=== PATIENT | female | born 1995 | race Caucasian/White ===

== ENCOUNTER 2017-01-11 02:04 | Emergency (ER) | payer SELFPAY ==
[~2017-01-11] VITALS: Ht 165.1 cm; Wt 114.3 kg
[~2017-01-11 02:04] MED LIST: MACR100C2 PO
[2017-01-11 02:09] VITALS: BP 128/85; PULSE 107; RESP 16; TEMP 98.3; O2SAT 99
[2017-01-11] MEDS ORDERED: SODIUM CHLOR 0.9% 1000 ML INJ 1,000 ML IV ONE (02:25)
[2017-01-11] MEDS ORDERED: methylPREDNISolone SOD SUCC 125 MG/2 ML VIAL IV PUSH ONE (02:30)
[2017-01-11] MEDS ORDERED: PROCHLORPERAZINE INJ 10 MG/2 ML VIAL IVP ONE (02:30)
[2017-01-11] MEDS ORDERED: diphenhydrAMINE HCL 50 MG/ML VIAL IVP ONE (02:30)
[2017-01-11] MEDS ORDERED: SODIUM CHLORIDE 0.9% FLUSH 10 ML FLUSH IVF PRN (02:30)
[2017-01-11] MEDS ORDERED: HYDROmorphone HCL PF 1 MG/ML VIAL IVP ONE (02:30)
[2017-01-11] MEDS ORDERED: KETOROLAC TROMETHAMINE 30 MG/ML (IVP) VIAL IVP ONE (02:30)
--- NOTE | 2017-01-11 02:31 | PD ---
HPI Chief Complaint: Headache Time Seen by Provider: 02:15 Travel History International Travel<30 days: No Contact w/Intl Traveler<30days: No Traveled to known affect area: No History of Present Illness HPI The patient is a 21-year-old female with no known history of migraine headaches that complains of a right frontal headache for 3 days. The headache has gone into the bilateral TMJ areas and started out behind both eyes. She is nauseated but there is been no vomiting or fever. She denies any focal neurologic change. The headache was of gradual onset and gradually got worse. She denies any diarrhea. She states there is no possibility of . PFSH Past Medical History ADHD: No Depression: Yes Cancer: No Cardiovascular Problems: No Developmental Delay: No Diabetes: No Diminished Hearing: No Psychiatric: Yes (depression) Immunizations Current: Yes Migraines: No Seizures: No Thyroid Disease: No Ulcer: No Tetanus Vaccination: < 5 Years Influenza Vaccination: No ?: Not LMP: 2 WEEKS AGO : 0 Past Surgical History Other Surgery: No Social History Alcohol Use: Yes (RARELY) Tobacco Use: Yes (1/2 PPD) Substance Use: No Allergies-Medications (Allergen,Severity, Reaction): Coded Allergies: Zoloft (Verified Allergy, Severe, THROAT SWELLS, 01/11/17) Reported Meds & Prescriptions Reported Meds & Active Scripts Active No Active Prescriptions or Reported Medications Review of Systems Except as stated in HPI: all other systems reviewed are Neg Physical Exam Narrative GENERAL: The patient is alert, oriented 3 in moderate apparent distress with her headache. Her vital signs are normal. SKIN: Focused skin assessment warm/dry. HEAD: Atraumatic. Normocephalic. EYES: Pupils equal and round. No scleral icterus. No injection or drainage. ENT: No nasal bleeding or discharge. Mucous membranes pink and moist. NECK: Trachea midline. No JVD. CARDIOVASCULAR: Regular rate and rhythm. No murmur appreciated. RESPIRATORY: No accessory muscle use. Clear to auscultation. Breath sounds equal bilaterally. GASTROINTESTINAL: Abdomen soft, non-tender, nondistended. Hepatic and splenic margins not palpable. MUSCULOSKELETAL: No obvious deformities. No clubbing. No cyanosis. No edema. NEUROLOGICAL: Awake and alert. No obvious cranial nerve deficits. Motor grossly within normal limits. Normal speech. PSYCHIATRIC: Appropriate mood and affect; insight and judgment normal. Data Data Last Documented VS Vital Signs Date Time Temp Pulse Resp B/P Pulse Ox O2 Delivery O2 Flow Rate FiO2 01/11/17 02:50 85 16 100 01/11/17 02:50 135/79 Room Air 01/11/17 02:09 98.3 Orders Ecg Monitoring (01/11/17 02:25) Iv Access Insert/Monitor (01/11/17 02:25) Oximetry (01/11/17 02:25) Sodium Chloride 0.9% Flush (Ns Flush) (01/11/17 02:30) Ketorolac Inj (Toradol Inj) (01/11/17 02:30) Prochlorperazine Inj (Compazine Inj) (01/11/17 02:30) Diphenhydramine Inj (Benadryl Inj) (01/11/17 02:30) Sodium Chlor 0.9% 1000 Ml Inj (Ns 1000 M (01/11/17 02:25) Hydromorphone Pf Inj (Dilaudid Pf Inj) (01/11/17 02:30) Methylprednisolone So Succ Inj (Solumedr (01/11/17 02:30) MDM Medical Decision Making Medical Screen Exam Complete: Yes Emergency Medical Condition: Yes Medical Record Reviewed: Yes Interpretation(s) It is now 0319 and the patient's headache is completely gone. She does not want any medication for nausea. Differential Diagnosis Migraine headache, tension headache, normal pressure hydrocephalusunlikely, intracranial bleedhighly unlikely Narrative Course The patient possibly had a migraine headache because she had nausea and photophobia. Her headache is resolved at this time and she should go home and sleep. Diagnosis Primary Impression: Migraine headache Additional Instructions: When you get home go directly to bed and sleep. The best thing you can do for her headache is to sleep. Hopefully this will not become a recurrent headache. If the headache recurs, follow-up with your primary care physician. Med/Other Pt SpecificInfo: No Change to Meds Scripts No Active Prescriptions or Reported Meds Disposition: 01 DISCHARGE HOME Condition: Stable Jaden Pompa MD Jan 11, 2017 02:31
[2017-01-11 02:35] VITALS: O2SAT 99
[2017-01-11 02:50] VITALS: BP 135/79; PULSE 85; RESP 16; O2SAT 100
[2017-01-11 03:20] VITALS: BP 92/54; PULSE 73; RESP 16; O2SAT 97
[2017-01-11 03:26] VITALS: BP 96/56; PULSE 70; RESP 16; O2SAT 97
== END 2017-01-11 03:37 | disposition home or self-care (01) ==
LOC: PHED 02:04
DX: G43.909 Migraine, unspecified, not intractable, without status migrainosus (principal); F17.210 Nicotine dependence, cigarettes, uncomplicated
CPT/HCPCS: 96361; 96374; 96375; 99283; J0780; J1170; J1200; J1885; J2930; J7030

== ENCOUNTER 2017-02-08 02:25 | Emergency (ER) | payer SELFPAY ==
[2017-02-08 02:28] VITALS: BP 137/75; PULSE 112; RESP 16; TEMP 99.1; O2SAT 100
--- NOTE | 2017-02-08 03:18 | PD ---
HPI Chief Complaint: Cold / Flu Symptoms Time Seen by Provider: 03:18 Travel History International Travel<30 days: No Contact w/Intl Traveler<30days: No Traveled to known affect area: No History of Present Illness HPI 21-year-old female with no significant medical history presents to the emergency department for evaluation of sore throat since yesterday. Patient states it is difficult to swallow due to the pain. Rates the pain an 8 out of 10. States she has not had any fever or chills. Has had an intermittent dry cough. Denies any nausea or vomiting. She has no other symptoms to report. PFSH Past Medical History ADHD: No Depression: Yes Cancer: No Cardiovascular Problems: No Developmental Delay: No Diabetes: No Diminished Hearing: No Psychiatric: Yes (depression) Immunizations Current: Yes Migraines: No Seizures: No Thyroid Disease: No Ulcer: No Tetanus Vaccination: Unknown Influenza Vaccination: Yes ?: Not LMP: 01/23/17 : 0 Past Surgical History Other Surgery: No Social History Alcohol Use: Yes (RARELY) Tobacco Use: Yes (1/2 PPD) Substance Use: No Allergies-Medications (Allergen,Severity, Reaction): Coded Allergies: Zoloft (Verified Allergy, Severe, THROAT SWELLS, 02/08/17) Reported Meds & Prescriptions Reported Meds & Active Scripts Active No Active Prescriptions or Reported Medications Review of Systems Except as stated in HPI: all other systems reviewed are Neg Physical Exam Narrative GENERAL: Well-nourished, well-developed female patient, in no acute distress SKIN: Focused skin assessment warm/dry. HEAD: Normocephalic. Atraumatic EYES: No scleral icterus. No injection or drainage. ENT: Mucosa pink and moist. Pharynx with erythema without exudate.. No uvular edema. No uvular, palatal, or tonsillar deviation. Airway patent. Nasal turbinates appear normal without nasal blood, purulent drainage or septal hematoma. NECK: Supple, trachea midline. No JVD or lymphadenopathy. CARDIOVASCULAR: Regular rate and rhythm without murmurs, gallops, or rubs. RESPIRATORY: Breath sounds equal bilaterally. No accessory muscle use. GASTROINTESTINAL: Abdomen soft, non-tender, nondistended. MUSCULOSKELETAL: No cyanosis, or edema. BACK: Nontender without obvious deformity. No CVA tenderness. Data Data Last Documented VS Vital Signs Date Time Temp Pulse Resp B/P Pulse Ox O2 Delivery O2 Flow Rate FiO2 02/08/17 02:28 99.1 112 16 137/75 100 Room Air Orders Group A Rapid Strep Screen (02/08/17 03:30) Ketorolac Inj (Toradol Inj) (02/08/17 03:30) Strep Culture (Group A) (02/08/17 03:30) MDM Medical Decision Making Medical Screen Exam Complete: Yes Emergency Medical Condition: Yes Medical Record Reviewed: Yes Differential Diagnosis Pharyngitis viral versus strep versus common cold versus allergy versus viral syndrome versus mono Narrative Course 21-year-old female presents to the emergency department for evaluation of sore throat. Rapid strep screen is negative. Patient is encouraged to avoid abrasive and acidic foods. She is encouraged to take Tylenol or ibuprofen as directed. She is encouraged to follow-up with a primary care provider. She agrees to return immediately with any acute worsening of symptoms. Diagnosis Primary Impression: Acute viral pharyngitis Referrals: Primary Care Physician Patient Instructions: General Instructions, Pharyngitis (ED) Additional Instructions: Warm salt water may help to alleviate symptoms Tylenol and/or ibuprofen as directed on package as needed for pain and/or fever Maintain adequate oral hydration Non-abrasive and non acidic foods Follow-up with a primary care provider Rapid strep screen was negative. The sample is sent for culture. If culture grows positive, you will be called in 3 days. Return immediately with any acute worsening of symptoms Med/Other Pt SpecificInfo: No Change to Meds Scripts No Active Prescriptions or Reported Meds Disposition: 01 DISCHARGE HOME Condition: Stable SharonRylee GOODMAN February 08, 2017 03:18
[2017-02-08] MEDS ORDERED: KETOROLAC TROMETHAMINE 60 MG/2 ML (IM) VIAL IM ONE (03:30)
[2017-02-08] MEDS ORDERED: AZIT200S2 PO (21:21)
== END 2017-02-08 05:40 | disposition home or self-care (01) ==
LOC: NEPD 02:25
DX: J02.9 Acute pharyngitis, unspecified (principal); F17.200 Nicotine dependence, unspecified, uncomplicated
CPT/HCPCS: 87081; 87880; 96372; 99283; J1885

== ENCOUNTER 2017-02-08 18:20 | Emergency (ER) | payer SELFPAY ==
[~2017-02-08] VITALS: Ht 165.1 cm; Wt 115.8 kg
[2017-02-08 18:30] VITALS: BP 120/78; PULSE 130; RESP 18; TEMP 102.4; O2SAT 98
[2017-02-08 18:45] VITALS: BP 125/58; PULSE 125; RESP 20; TEMP 100.7; O2SAT 99
[2017-02-08] MEDS ORDERED: ACETAMINOPHEN 325 MG TAB PO ONE (19:30)
[2017-02-08] MEDS ORDERED: SODIUM CHLOR 0.9% 1000 ML INJ 1,000 ML IV ONE (19:45)
[2017-02-08 19:53] VITALS: BP 114/66; PULSE 116; RESP 18; TEMP 99.6; O2SAT 100
[2017-02-08] MEDS ORDERED: KETOROLAC TROMETHAMINE 30 MG/ML (IVP) VIAL IV PUSH ONE (20:15)
[2017-02-08] MEDS ORDERED: cefTRIAXone INJ 1,000 MG in SODIUM CHLORIDE 0.9% INJ 100 ML IV ONE (20:15)
--- NOTE | 2017-02-08 20:31 | RADHPO ---
EXAM DATE/TIME: 02/08/2017 19:37 [facility] COMPARISON: No previous studies available for comparison. INDICATIONS : Patient has had chest pain and been short of breath for three days. MEDICAL HISTORY : None. SURGICAL HISTORY : None. ENCOUNTER: Initial ACUITY: 3 days PAIN SCORE: 5/10 LOCATION: Bilateral chest center. FINDINGS: Minimal parenchymal changes are seen in the left base. The right lung is clear. Heart and pulmonary vascularity are normal. Portions of the bony skeleton visualized are unremarkable. CONCLUSION: Minimal parenchymal changes left base. Braden Valdez MD FACR on February 08, 2017 at 20:09 Board Certified Radiologist. This report was verified electronically.
[2017-02-08 20:32] LABS: BASOPHIL # 0.2 TH/MM3 (0-0.2); BASOPHIL % 1.4 % (0.0-2.0); EOSINOPHIL # 0.1 TH/MM3 (0-0.4); EOSINOPHIL % 0.6 % (0.0-4.0); LYMPH % 7.3 % (9.0-44.0); LYMPHOCYTE # 1.1 TH/MM3 (1.0-4.8); MEAN CELL VOLUME 84.7 FL (80.0-100.0); MEAN CORPUSCULAR HEMOGLOBIN 29.3 PG (27.0-34.0); MEAN CORPUSCULAR HGB CONC 34.6 % (32.0-36.0); MONO % 5.6 % (0.0-8.0); NEUT % 85.1 % (16.0-70.0); PLATELET COUNT 201 TH/MM3 (150-450); RED BLOOD COUNT 4.48 MIL/MM3 (4.00-5.30); RED CELL DISTRIBUTION WIDTH 12.3 % (11.6-17.2); WHITE BLOOD COUNT 15.3 TH/MM3 (4.0-11.0)
[2017-02-08 20:33] LABS: HEMO FLAGS DIFF FINAL
[2017-02-08 20:42] LABS: POTASSIUM 3.7 MEQ/L (3.5-5.1)
[2017-02-08 20:50] VITALS: BP 104/59; PULSE 103; RESP 18; O2SAT 100
[2017-02-08 21:03] VITALS: RESP 18
--- NOTE | 2017-02-08 21:10 | PD ---
HPI Chief Complaint: ENT Complaint Time Seen by Provider: 19:17 Travel History International Travel<30 days: No Contact w/Intl Traveler<30days: No Traveled to known affect area: No History of Present Illness HPI 21-year-old female presents to the emergency department by private transportation for 3 days of fever or cough congestion sore throat and intermittent episodes of posttussive emesis without shortness of breath abdominal pain diarrhea dysuria frequency urgency or headache. Patient denies any relief of symptoms using [id number] cold preparations. Patient has used ibuprofen and acetaminophen. PFSH Past Medical History Medical History: Denies Significant Hx ADHD: No Depression: Yes Cancer: No Cardiovascular Problems: No Developmental Delay: No Diabetes: No Diminished Hearing: No Psychiatric: Yes (depression) Immunizations Current: Yes Migraines: No Seizures: No Thyroid Disease: No Ulcer: No Tetanus Vaccination: < 5 Years Influenza Vaccination: No ?: Not LMP: 2 weeks ago : 0 Past Surgical History Surgical History: No Previous Surgery Other Surgery: No Social History Alcohol Use: Yes (RARELY) Tobacco Use: Yes (1/2 PPD) Substance Use: No Allergies-Medications (Allergen,Severity, Reaction): Coded Allergies: Zoloft (Verified Allergy, Severe, THROAT SWELLS, 02/08/17) Reported Meds & Prescriptions Reported Meds & Active Scripts Active Azithromycin Liq (Azithromycin) 200 Mg/5 Ml Susp 500 Mg PO DAILY Day 1 once daily 500mg/10ml, then Days 2-5 once daily 250mg/5ml for total of 5 days Review of Systems Except as stated in HPI: all other systems reviewed are Neg General / Constitutional: Positive: Fever, Chills HENT: Positive: Sore Throat, Congestion, No: Ear Discharge Cardiovascular: No: Chest Pain or Discomfort Respiratory: Positive: Cough, No: Shortness of Breath, Wheezing Gastrointestinal: Positive: Vomiting (posr tussive), No: Nausea, Abdominal Pain Genitourinary: No: Dysuria, Decreased Urinary Output, Flank Pain Musculoskeletal: Positive: Myalgias, Arthralgias Skin: No Rash Neurologic: No: Weakness Psychiatric: No: Anxiety Hematologic/Lymphatic: No: Lymph Node Enlargement Physical Exam Narrative GENERAL: Well-developed well-nourished female in no acute distress no respiratory distress SKIN: Warm and dry. HEAD: Normocephalic. EYES: No scleral icterus. No injection or drainage. ENT: Mucous membranes moist airway is patent mild erythema NECK: Supple, trachea midline. No JVD or lymphadenopathy. CARDIOVASCULAR: Regular rate and rhythm without murmurs, gallops, or rubs. RESPIRATORY: Breath sounds equal bilaterally. No accessory muscle use. GASTROINTESTINAL: Abdomen soft, non-tender, nondistended. MUSCULOSKELETAL: No cyanosis, or edema. BACK: Nontender without obvious deformity. No CVA tenderness. Data Data Last Documented VS Vital Signs Date Time Temp Pulse Resp B/P Pulse Ox O2 Delivery O2 Flow Rate FiO2 02/08/17 21:42 18 100 02/08/17 20:50 103 02/08/17 20:50 104/59 Room Air 02/08/17 19:53 99.6 Orders Ed Urine Pregnancytest Poc (02/08/17 19:17) Chest, Single Ap (02/08/17 ) Acetaminophen (Tylenol) (02/08/17 19:30) Sodium Chlor 0.9% 1000 Ml Inj (Ns 1000 M (02/08/17 19:45) Complete Blood Count With Diff (02/08/17 20:12) Basic Metabolic Panel (Bmp) (02/08/17 20:12) Blood Culture (02/08/17 20:12) Ceftriaxone Inj (Rocephin Inj) (02/08/17 20:15) Ketorolac Inj (Toradol Inj) (02/08/17 20:15) Azithromycin 200 Mg/5 Ml Liq (Zithromax (02/08/17 21:15) Labs Laboratory Tests Test 02/08/17 20:15 White Blood Count 15.3 TH/MM3 Red Blood Count 4.48 MIL/MM3 Hemoglobin 13.1 GM/DL Hematocrit 38.0 % Mean Corpuscular Volume 84.7 FL Mean Corpuscular Hemoglobin 29.3 PG Mean Corpuscular Hemoglobin 34.6 % Concent Red Cell Distribution Width 12.3 % Platelet Count 201 TH/MM3 Mean Platelet Volume 9.2 FL Neutrophils (%) (Auto) 85.1 % Lymphocytes (%) (Auto) 7.3 % Monocytes (%) (Auto) 5.6 % Eosinophils (%) (Auto) 0.6 % Basophils (%) (Auto) 1.4 % Neutrophils # (Auto) 13.0 TH/MM3 Lymphocytes # (Auto) 1.1 TH/MM3 Monocytes # (Auto) 0.9 TH/MM3 Eosinophils # (Auto) 0.1 TH/MM3 Basophils # (Auto) 0.2 TH/MM3 CBC Comment DIFF FINAL Differential Comment Sodium Level 138 MEQ/L Potassium Level 3.7 MEQ/L Chloride Level 103 MEQ/L Carbon Dioxide Level 27.0 MEQ/L Anion Gap 8 MEQ/L Blood Urea Nitrogen 6 MG/DL Creatinine 0.73 MG/DL Estimat Glomerular Filtration 101 ML/MIN Rate Random Glucose 100 MG/DL Calcium Level 8.4 MG/DL MDM Medical Decision Making Medical Screen Exam Complete: Yes Emergency Medical Condition: Yes Medical Record Reviewed: Yes Interpretation(s) CBC & BMP Diagram 02/08/17 20:15 Vital Signs Date Time Temp Pulse Resp B/P Pulse Ox O2 Delivery O2 Flow Rate FiO2 02/08/17 21:03 18 02/08/17 20:50 103 18 02/08/17 20:50 103 18 104/59 100 Room Air 02/08/17 19:53 99.6 116 18 114/66 100 Room Air 02/08/17 18:45 100.7 125 20 125/58 99 Room Air 02/08/17 18:30 102.4 130 18 120/78 98 Differential Diagnosis Upper respiratory infection, sinusitis, pharyngitis, bronchitis, pneumonia Narrative Course It's 9:15 PM patient is nontoxic has responded well to antipyretics, has received a liter of normal saline for hydration, has received first dose of IV Rocephin and oral antibiotic azithromycin; patient is otherwise stable for outpatient management. Patient encouraged to follow-up with primary care provider. Patient is to return to the emergency department for any concerns or change in condition. Patient is aware of need for close monitoring of her temperature elevation and to take antipyretics as indicated for fever 100.4F or greater. Patient acknowledge understanding of discharge diagnosis and discharge instructions and feels comfortable being discharged to home. Sepsis Criteria SIRS Criteria (2 or more): Temp > 100.9 or < 96.8, Heart rate over 90 Sepsis Criteria (SIRS+source): Infect source susp/known (sinuses/LLL infiltrate ) Diagnosis Primary Impression: Pneumonia Qualified Code: J18.1 - Pneumonia of left lower lobe due to infectious organism Additional Impression: Sinusitis Referrals: Primary Care Physician call for appointment Patient Instructions: General Instructions Departure Forms: Tests/Procedures, Work Release Special Instructions: no work x 2 days Additional Instructions: Increase fluid hydration Follow-up with primary care provider No work 2 days Monitor temperature every 4 hours with thermometer and take as needed acetaminophen/Tylenol every 4 hours for fever 100.4F or greater and/or ibuprofen/Advil/Motrin 6-8 hours as needed for fever 100.4F or greater and for pain associated with inflammation Complete course of antibiotic as prescribed Return to the emergency department for any concerns or change in condition such as ongoing fever or pain Med/Other Pt SpecificInfo: Prescription(s) given Scripts Azithromycin Liq 200 Mg/5 Ml [id number] Mg PO DAILY #30 ML Ref 0 Day 1 once daily 500mg/10ml, then Days 2-5 once daily 250mg/5ml for total of 5 days Prov:Mildred Fierro MD 02/08/17 Disposition: 01 DISCHARGE HOME Condition: Stable Mildred Fierro MD February 08, 2017 21:10
[2017-02-08] MEDS ORDERED: AZITHROMYCIN SUSP 200 MG/5 ML 15 ML BTL PO ONE (21:15)
[2017-02-08] MEDS ORDERED: AZIT200S2 PO (21:21)
== END 2017-02-08 21:43 | disposition home or self-care (01) ==
LOC: PHED 18:20
DX: J18.9 Pneumonia, unspecified organism (principal); J32.9 Chronic sinusitis, unspecified; F17.210 Nicotine dependence, cigarettes, uncomplicated
CPT/HCPCS: 71010; 80048; 84703; 85025; 87040; 96365; 96375; 99284; J0696; J1885; J7030

== ENCOUNTER 2017-02-14 00:29 | Emergency (ER) | payer SELFPAY ==
[~2017-02-14] VITALS: Ht 165.1 cm; Wt 115.7 kg
[~2017-02-14 00:29] MED LIST changes: +AZIT200S2 PO; -MACR100C2 PO
[2017-02-14 00:34] VITALS: BP 112/79; PULSE 98; RESP 16; TEMP 98.3; O2SAT 99
[2017-02-14 01:11] VITALS: BP 112/79; PULSE 98; RESP 18; TEMP 98.3; O2SAT 99
[2017-02-14] MEDS ORDERED: SODIUM CHLORIDE 0.9% FLUSH 10 ML FLUSH IVF PRN (01:15)
[2017-02-14 01:16] VITALS: RESP 18; O2SAT 99
--- NOTE | 2017-02-14 01:27 | RADHPO ---
EXAM DATE/TIME: 02/14/2017 01:21 [facility] COMPARISON: CHEST SINGLE AP, February 08, 2017, 19:37. INDICATIONS : Shortness of breath. MEDICAL HISTORY : None. SURGICAL HISTORY : None. ENCOUNTER: Initial ACUITY: 1 day PAIN SCORE: 0/10 LOCATION: Bilateral chest FINDINGS: The lungs are clear without infiltrate, nodule, or mass. There is no appreciable pleural effusion fo r technique. Heart and mediastinum are unremarkable. CONCLUSION: No acute cardiopulmonary disease. Jaison Dow MD on February 14, 2017 at 1:25 Board Certified Radiologist. This report was verified electronically.
[2017-02-14 01:40] LABS: AUTOMATED NEUTROPHIL # 7.3 TH/MM3 (1.8-7.7); BASOPHIL # 0.4 TH/MM3 (0-0.2); EOSINOPHIL # 0.2 TH/MM3 (0-0.4); EOSINOPHIL % 1.6 % (0.0-4.0); HEMATOCRIT 42.3 % (35.0-46.0); LYMPH % 26.6 % (9.0-44.0); LYMPHOCYTE # 3.1 TH/MM3 (1.0-4.8); MEAN CELL VOLUME 85.8 FL (80.0-100.0); MEAN CORPUSCULAR HEMOGLOBIN 28.5 PG (27.0-34.0); MEAN CORPUSCULAR HGB CONC 33.2 % (32.0-36.0); MONO % 6.2 % (0.0-8.0); NEUT % 62.6 % (16.0-70.0); PLATELET COUNT 325 TH/MM3 (150-450); RED BLOOD COUNT 4.94 MIL/MM3 (4.00-5.30); RED CELL DISTRIBUTION WIDTH 12.6 % (11.6-17.2); WHITE BLOOD COUNT 11.7 TH/MM3 (4.0-11.0)
[2017-02-14 01:44] LABS: HEMO FLAGS DIFF FINAL
[2017-02-14 01:46] LABS: POTASSIUM 4.2 MEQ/L (3.5-5.1)
[2017-02-14 01:50] LABS: BICARBONATE 26.2 MEQ/L (21.0-32.0)
[2017-02-14 02:14] VITALS: BP 116/64; PULSE 89; RESP 18; O2SAT 99
[2017-02-14] MEDS ORDERED: guaiFENesin/CODEINE SYRUP 200 MG/20 MG/10 ML CUP PO ONE (02:30)
--- NOTE | 2017-02-14 02:39 | PD ---
HPI Chief Complaint: Cold / Flu Symptoms Time Seen by Provider: 00:58 Travel History International Travel<30 days: No Contact w/Intl Traveler<30days: No Traveled to known affect area: No History of Present Illness HPI 21yo F with no PMH presents to the ED with c/o cough, nasal congestion and mild sob for a few days. Pt was seen at [facility] on 02/08/17 for pneumonia and discharged with azithromycin. CXR at the time showed minimal parenchymal changes left base. Pt denies any fever, chest pain, n/v, abdominal pain, focal weakness or numbness. Pt is a cig smoker. PFSH Past Medical History ADHD: No Depression: Yes Cancer: No Cardiovascular Problems: No Developmental Delay: No Diabetes: No Diminished Hearing: No Psychiatric: Yes (depression) Immunizations Current: Yes Migraines: No Seizures: No Thyroid Disease: No Ulcer: No Tetanus Vaccination: Unknown Influenza Vaccination: Yes ?: Not LMP: 2 WEEKS AGO : 0 Past Surgical History Other Surgery: No Social History Alcohol Use: Yes (RARELY) Tobacco Use: Yes (1/2 PPD) Substance Use: No Allergies-Medications (Allergen,Severity, Reaction): Coded Allergies: Zoloft (Verified Allergy, Severe, THROAT SWELLS, 02/14/17) Reported Meds & Prescriptions Reported Meds & Active Scripts Active Azithromycin Liq (Azithromycin) 200 Mg/5 Ml Susp 500 Mg PO DAILY Day 1 once daily 500mg/10ml, then Days 2-5 once daily 250mg/5ml for total of 5 days Review of Systems Except as stated in HPI: all other systems reviewed are Neg Physical Exam Narrative GENERAL: 21yo F not in distress. SKIN: Focused skin assessment warm/dry. HEAD: Atraumatic. Normocephalic. EYES: Pupils equal and round. No scleral icterus. No injection or drainage. ENT: No nasal bleeding or discharge. Mucous membranes pink and moist. NECK: Trachea midline. No JVD. CARDIOVASCULAR: Regular rate and rhythm. No murmur appreciated. RESPIRATORY: No accessory muscle use. Clear to auscultation. Breath sounds equal bilaterally. Saturating at 99% on RA. GASTROINTESTINAL: Abdomen soft, non-tender, nondistended. No rebound tenderness or guarding. MUSCULOSKELETAL: No obvious deformities. No clubbing. No cyanosis. No edema. NEUROLOGICAL: Awake and alert. No obvious cranial nerve deficits. Motor grossly within normal limits. Normal speech. PSYCHIATRIC: Appropriate mood and affect; insight and judgment normal. Data Data Last Documented VS Vital Signs Date Time Temp Pulse Resp B/P Pulse Ox O2 Delivery O2 Flow Rate FiO2 02/14/17 02:14 89 18 116/64 99 Room Air 02/14/17 01:11 98.3 Orders Complete Blood Count With Diff (02/14/17 01:14) Basic Metabolic Panel (Bmp) (02/14/17 01:14) Iv Access Insert/Monitor (02/14/17 01:14) Ecg Monitoring (02/14/17 01:14) Oximetry (02/14/17 01:14) Oxygen Administration (02/14/17 01:14) Chest, Single Ap (02/14/17 01:14) Sodium Chloride 0.9% Flush (Ns Flush) (02/14/17 01:15) Lactic Acid Sepsis Protocol (02/14/17 01:15) Guaifen-Cod 200-20 Mg/10ml Liq (Robituss (02/14/17 02:30) Labs Laboratory Tests Test 02/14/17 01:30 White Blood Count 11.7 TH/MM3 Red Blood Count 4.94 MIL/MM3 Hemoglobin 14.1 GM/DL Hematocrit 42.3 % Mean Corpuscular Volume 85.8 FL Mean Corpuscular Hemoglobin 28.5 PG Mean Corpuscular Hemoglobin 33.2 % Concent Red Cell Distribution Width 12.6 % Platelet Count 325 TH/MM3 Mean Platelet Volume 8.5 FL Neutrophils (%) (Auto) 62.6 % Lymphocytes (%) (Auto) 26.6 % Monocytes (%) (Auto) 6.2 % Eosinophils (%) (Auto) 1.6 % Basophils (%) (Auto) 3.0 % Neutrophils # (Auto) 7.3 TH/MM3 Lymphocytes # (Auto) 3.1 TH/MM3 Monocytes # (Auto) 0.7 TH/MM3 Eosinophils # (Auto) 0.2 TH/MM3 Basophils # (Auto) 0.4 TH/MM3 CBC Comment DIFF FINAL Differential Comment Sodium Level 140 MEQ/L Potassium Level 4.2 MEQ/L Chloride Level 105 MEQ/L Carbon Dioxide Level 26.2 MEQ/L Anion Gap 9 MEQ/L Blood Urea Nitrogen 14 MG/DL Creatinine 0.80 MG/DL Estimat Glomerular Filtration 91 ML/MIN Rate Random Glucose 79 MG/DL Lactic Acid Level 1.1 mmol/L Calcium Level 8.9 MG/DL [facility] Medical Decision Making Medical Screen Exam Complete: Yes Emergency Medical Condition: Yes Differential Diagnosis URI vs. Bronchitis vs. Pneumonia Narrative Course 21yo F with URI like symptoms here stating her symptoms are not resolved. Pt is on day 3 of azithromycin. Pt is well appearing and not tachypneic. VS stable. Labs reviewed, WBC 11.7, improved from prior visit. Lactic acid normal at 1.1. BMP unremarkable. Pt reevaluated at bedside and felt better with robitussin. Pt states she used to have an albuterol pump and it helped but she no longer has it. Will give ventolin pump and symptomatic treatment. CXR today showed no acute cardiopulmonary disease. Return precautions given. Diagnosis Primary Impression: Upper respiratory infection Qualified Code: J06.9 - Upper respiratory tract infection, unspecified type Patient Instructions: General Instructions Departure Forms: Tests/Procedures Additional Instructions: Please follow up with your PMD in 1-2 days. Return to the ED if symptoms worsen. Med/Other Pt SpecificInfo: Prescription(s) given Scripts Fluticasone Nasal [place] (Flonase Nasal [place])50 Mcg/Act Spray50 Mcg EACH NARE BID #1 BOTTLE Ref 0 Prov:Padmini Olsen DO 02/14/17 Albuterol 18 GM Inh (Ventolin Hfa 18 GM Inh)90 Mcg/Act Aer2 Puff INH Q4H PRN ( SHORTNESS OF BREATH) #1 INHALER Ref 0 Prov:Padmini Olsen DO 02/14/17 Dextromethorphan Polistirex Liq (Robitussin 12 Hour Cough Liq)30 Mg/5 Ml Sus10 Ml PO Q12H PRN (COUGH) 5 Days Ref 0 Prov:Padmini Olsen DO 02/14/17 Disposition: 01 DISCHARGE HOME Condition: Stable Padmini Olsen DO February 14, 2017 02:39
[2017-02-14] MEDS ORDERED: VENTAER INH (02:45)
[2017-02-14] MEDS ORDERED: FLUT1SPR5 EACH NARE (02:45)
[2017-02-14] MEDS ORDERED: DEXT1SUS PO (02:45)
== END 2017-02-14 02:56 | disposition home or self-care (01) ==
LOC: PHED 00:29
DX: J06.9 Acute upper respiratory infection, unspecified (principal); F32.9 Major depressive disorder, single episode, unspecified; F17.210 Nicotine dependence, cigarettes, uncomplicated
CPT/HCPCS: 71010; 80048; 83605; 85025; 99284

== ENCOUNTER 2017-02-22 04:01 | Emergency (ER) | payer SELFPAY ==
[~2017-02-22] VITALS: Ht 165.1 cm; Wt 113.0 kg
[~2017-02-22 04:01] MED LIST changes: +DEXT1SUS PO; +FLUT1SPR5 EACH NARE; +VENTAER INH
[2017-02-22 04:05] VITALS: BP 133/87; PULSE 85; RESP 16; TEMP 98.1; O2SAT 100
--- NOTE | 2017-02-22 05:31 | PD ---
HPI Chief Complaint: Abdominal Pain Time Seen by Provider: 05:28 Travel History International Travel<30 days: No Contact w/Intl Traveler<30days: No Traveled to known affect area: No History of Present Illness HPI 21-year-old female presents to the emergency department for multiple complaints complaining of right-sided facial pain and jaw pain as well as dizziness of abdominal pain and generalized weakness. Patient is completed a course of azithromycin. Denies any fever chills sore throat earache neck pain or enlarged lymph nodes no cough shortness of breath or pleuritic pain. Patient's had no vomiting or diarrhea. No noted dysuria. Last period was normal and denies . PFSH Past Medical History Narrative Medical Asthma depression alcohol use tobacco use; nursing notes reviewed ADHD: No Asthma: Yes Depression: Yes Cancer: No Cardiovascular Problems: No Developmental Delay: No Diabetes: No Diminished Hearing: No Psychiatric: Yes (depression) Immunizations Current: Yes Migraines: No Seizures: No Thyroid Disease: No Ulcer: No Tetanus Vaccination: Unknown Influenza Vaccination: No ?: Not : 0 Past Surgical History Surgical History: No Previous Surgery Other Surgery: No Social History Alcohol Use: Yes (RARELY) Tobacco Use: Yes (1/2 PPD) Substance Use: No Allergies-Medications (Allergen,Severity, Reaction): Coded Allergies: Zoloft (Verified Allergy, Severe, THROAT SWELLS, 02/22/17) Reported Meds & Prescriptions Reported Meds & Active Scripts Active No Active Prescriptions or Reported Medications Review of Systems Except as stated in HPI: all other systems reviewed are Neg General / Constitutional: No: Fever, Chills Eyes: No: Visual changes HENT: Positive: Earache, Other (facial [pain), No: Headaches, Sore Throat, Rhinorrhea Cardiovascular: No: Chest Pain or Discomfort, Syncope, Dyspnea on exertion Respiratory: No: Cough, Shortness of Breath, Pleuritic Pain Gastrointestinal: Positive: Nausea, Abdominal Pain (mild upper abdominal discomfort), No: Vomiting, Diarrhea Genitourinary: No: Dysuria, Flank Pain, Discharge, Vaginal Bleeding Musculoskeletal: Positive: Myalgias, Arthralgias Skin: No Rash Neurologic: Positive: Dizziness, No: Weakness, Syncope, Focal Abnormalities, Coordination Problem Psychiatric: No: Anxiety Hematologic/Lymphatic: No: Lymph Node Enlargement Physical Exam Narrative GENERAL: Well-developed well-nourished female in no acute distress no respiratory distress SKIN: Warm and dry. HEAD: Normocephalic. EYES: No scleral icterus. No injection or drainage. ENT: Mucous membranes moist airway is patent dentition intact with the several dental caries minimal gingival edema palpation of the soft tissue of the buccal mucosa at the right TMJ provide some reproducible tenderness but no soft tissue swelling or mass or fluctuance. Patient is able to maneuver mandible opening and closing the mouth and moving the jaw from side to side without difficulty and there is no dental malocclusion. NECK: Supple, trachea midline. No JVD or lymphadenopathy. No meningismus no nuchal rigidity. CARDIOVASCULAR: Regular rate and rhythm without murmurs, gallops, or rubs. RESPIRATORY: Breath sounds equal bilaterally. No accessory muscle use. GASTROINTESTINAL: Abdomen soft, non-tender, nondistended. Nontender abdomen no guarding no rebound. MUSCULOSKELETAL: No cyanosis, or edema. BACK: Nontender without obvious deformity. No CVA tenderness. Data Data Last Documented VS Vital Signs Date Time Temp Pulse Resp B/P Pulse Ox O2 Delivery O2 Flow Rate FiO2 02/22/17 05:34 98.2 02/22/17 05:32 77 18 119/80 85 18 114/78 80 18 119/84 02/22/17 04:05 100 Room Air Orders Orthostatic Vital Signs (02/22/17 05:28) Ed Urine Pregnancytest Poc (02/22/17 05:28) Urinalysis - C+S If Indicated (02/22/17 05:28) Ibuprofen (Motrin) (02/22/17 06:00) Labs Laboratory Tests Test 02/22/17 05:40 Urine Color LIGHT-YELLOW Urine Turbidity CLEAR Urine pH 5.5 Urine Specific [place] 1.006 Urine Protein NEG mg/dL Urine Glucose (UA) NEG mg/dL Urine Ketones NEG mg/dL Urine Occult Blood NEG Urine Nitrite NEG Urine Bilirubin NEG Urine Urobilinogen LESS THAN 2.0 MG/DL Urine Leukocyte Esterase NEG Urine RBC LESS THAN 1 /hpf Urine WBC LESS THAN 1 /hpf Urine Squamous Epithelial <1 /hpf Cells Microscopic Urinalysis Comment CULT NOT INDICATED MDM Medical Decision Making Medical Screen Exam Complete: Yes Emergency Medical Condition: Yes Medical Record Reviewed: Yes Interpretation(s) poc hcg: negative UA: wnl Differential Diagnosis Sialadenitis, lymphadenopathy, dentalgia, viral syndrome, , UTI; also to consider TMJ no evidence of mandible subluxation or dislocation Narrative Course Orthostatic measurements performed and no variance supine sitting to standing from a heart rate blood pressure; [id number] hCG performed and urinalysis collected Diagnosis Primary Impression: Jaw pain Referrals: [facility] call for appointment Patient Instructions: General Instructions Departure Forms: Tests/Procedures, Work Release Special Instructions: no work x 1 day Additional Instructions: Follow soft diet 2-3 days Increase fluid hydration [facility] with [facility] Take ibuprofen 800 mg as often as every 8 hours as needed for fever 100.4F or greater or for pain associated inflammation Return to the emergency department for any concerns Med/Other Pt SpecificInfo: No Meds Exist/No RX given Scripts No Active Prescriptions or Reported Meds Disposition: 01 DISCHARGE HOME Condition: Stable Mildred Fierro MD Feb 22, 2017 05:31
[2017-02-22 05:32] VITALS: BP_SYST 114; BP_SYST 119; BP_DIAS 78; BP_DIAS 80; BP_DIAS 84; RESP 18
[2017-02-22 05:34] VITALS: TEMP 98.2
[2017-02-22 05:54] LABS: BLOOD, URINE NEG (NEG); GLUCOSE,URINE NEG (NEG); KETONE, URINE NEG (NEG); NITRITE,URINE NEG (NEG); PH, URINE 5.5 (5.0-8.5); SQUAMOUS EPITHELIAL CELL URINE <1 /hpf (0-5); URINE COLOR LIGHT-YELLOW (YELLW/STRAW)
[2017-02-22 06:00] LABS: COMMENT (UR) CULT NOT INDICATED; CULTURE IF INDICATED CULT NOT INDICATED
[2017-02-22] MEDS ORDERED: IBUPROFEN 800 MG TAB PO ONE (06:00)
== END 2017-02-22 06:56 | disposition home or self-care (01) ==
LOC: NEPC 04:01
DX: R68.84 Jaw pain (principal); K02.9 Dental caries, unspecified; H92.09 Otalgia, unspecified ear; R11.0 Nausea; R10.10 Upper abdominal pain, unspecified; R42 Dizziness and giddiness; M79.1 Myalgia; F17.210 Nicotine dependence, cigarettes, uncomplicated
CPT/HCPCS: 81001; 84703; 99283

== ENCOUNTER 2017-03-08 00:25 | Emergency (ER) | payer SELFPAY ==
[~2017-03-08] VITALS: Ht 165.1 cm; Wt 118.0 kg
[2017-03-08 00:30] VITALS: BP 108/76; PULSE 90; RESP 18; TEMP 98.4; O2SAT 98
[2017-03-08 00:38] VITALS: BP 108/76; PULSE 90; RESP 18; TEMP 98.4; O2SAT 98
--- NOTE | 2017-03-08 00:49 | PD ---
HPI Chief Complaint: GI Complaint Time Seen by Provider: 00:39 Travel History International Travel<30 days: No Contact w/Intl Traveler<30days: No Traveled to known affect area: No History of Present Illness HPI This is a 21-year-old female who presents to the emergency department with 3 hours of right upper quadrant abdominal pain, constant, severe, stabbing, associated with nausea and some subjective fevers and chills. She denies any dysuria, frequency, urgency, vaginal bleeding or diarrhea. She says she's never had pain like this before. She's never had surgery on her abdomen. She denies any vaginal discharge. PFSH Past Medical History ADHD: No Asthma: Yes Depression: Yes Cancer: No Cardiovascular Problems: No Developmental Delay: No Diabetes: No Diminished Hearing: No Psychiatric: Yes (depression) Immunizations Current: Yes Migraines: No Seizures: No Thyroid Disease: No Ulcer: No Tetanus Vaccination: Unknown Influenza Vaccination: Yes ?: Unknown LMP: 02/22/17 : 0 Past Surgical History Other Surgery: No Social History Alcohol Use: Yes (RARELY) Tobacco Use: Yes (1/2 PPD) Substance Use: No Allergies-Medications (Allergen,Severity, Reaction): Coded Allergies: Zoloft (Verified Allergy, Severe, THROAT SWELLS, 03/08/17) Reported Meds & Prescriptions Reported Meds & Active Scripts Active No Active Prescriptions or Reported Medications Review of Systems Except as stated in HPI: all other systems reviewed are Neg Physical Exam Narrative GENERAL:Well appearing, no acute distress SKIN: Focused skin assessment warm and dry. HEAD: Atraumatic. Normocephalic. EYES: Pupils equal and round. No injection or drainage. ENT: Moist mucous membranes NECK: Trachea midline. CARDIOVASCULAR: Regular rate and rhythm. No murmur appreciated. RESPIRATORY: Clear to auscultation. Breath sounds equal bilaterally. GASTROINTESTINAL: Abdomen soft, tender to palpation in the right upper quadrant and right lower quadrants with no rebound or guarding. MUSCULOSKELETAL: No obvious deformities. NEUROLOGICAL: Awake and alert. No obvious cranial nerve deficits. Moving all extremities. PSYCHIATRIC: Appropriate mood and affect; insight and judgment normal. Data Data Last Documented VS Vital Signs Date Time Temp Pulse Resp B/P Pulse Ox O2 Delivery O2 Flow Rate FiO2 03/08/17 01:56 82 18 112/69 99 Room Air 03/08/17 00:38 98.4 Orders Complete Blood Count With Diff (03/08/17 00:39) Comprehensive Metabolic Panel (03/08/17 00:39) ^ Insert Iv (03/08/17 00:39) Lipase (03/08/17 00:39) Ed Urine Pregnancytest Poc (03/08/17 00:39) Ed Poc Ultrasound (03/08/17 ) Ct Abd/Pel W Iv Contrast(Rout) (03/08/17 ) Acetaminophen 650 Mg/20 Ml Liq (Tylenol (03/08/17 01:00) Ondansetron Inj (Zofran Inj) (03/08/17 01:00) Urinalysis - C+S If Indicated (03/08/17 01:03) Iohexol 350 Inj (Omnipaque 350 Inj) (03/08/17 01:45) Labs Laboratory Tests Test 03/08/17 01:00 White Blood Count 9.2 TH/MM3 Red Blood Count 4.76 MIL/MM3 Hemoglobin 13.6 GM/DL Hematocrit 40.3 % Mean Corpuscular Volume 84.6 FL Mean Corpuscular Hemoglobin 28.6 PG Mean Corpuscular Hemoglobin 33.8 % Concent Red Cell Distribution Width 12.3 % Platelet Count 249 TH/MM3 Mean Platelet Volume 8.8 FL Neutrophils (%) (Auto) 62.6 % Lymphocytes (%) (Auto) 27.5 % Monocytes (%) (Auto) 7.0 % Eosinophils (%) (Auto) 2.2 % Basophils (%) (Auto) 0.7 % Neutrophils # (Auto) 5.8 TH/MM3 Lymphocytes # (Auto) 2.5 TH/MM3 Monocytes # (Auto) 0.6 TH/MM3 Eosinophils # (Auto) 0.2 TH/MM3 Basophils # (Auto) 0.1 TH/MM3 CBC Comment DIFF FINAL Differential Comment Urine Color YELLOW Urine Turbidity SLIGHT Urine pH 7.5 Urine Specific [place] 1.028 Urine Protein TRACE mg/dL Urine Glucose (UA) NEG mg/dL Urine Ketones NEG mg/dL Urine Occult Blood NEG Urine Nitrite NEG Urine Bilirubin NEG Urine Leukocyte Esterase NEG Urine RBC 0-2 /hpf Urine WBC 0-2 /hpf Urine Squamous Epithelial 0-5 /hpf Cells Urine Amorphous Sediment FEW Urine Bacteria RARE /hpf Microscopic Urinalysis Comment CULT NOT INDICATED Sodium Level 142 MEQ/L Potassium Level 3.8 MEQ/L Chloride Level 107 MEQ/L Carbon Dioxide Level 27.6 MEQ/L Anion Gap 7 MEQ/L Blood Urea Nitrogen 16 MG/DL Creatinine 0.89 MG/DL Estimat Glomerular Filtration 80 ML/MIN Rate Random Glucose 94 MG/DL Calcium Level 8.8 MG/DL Total Bilirubin 0.2 MG/DL Aspartate Amino Transf 18 U/L (AST/SGOT) Alanine Aminotransferase 25 U/L (ALT/SGPT) Alkaline Phosphatase 99 U/L Total Protein 7.7 GM/DL Albumin 3.9 GM/DL Lipase 124 U/L [facility] Medical Decision Making Medical Screen Exam Complete: Yes Emergency Medical Condition: Yes Interpretation(s) Afebrile, no tachycardia, normotensive No leukocytosis Electrolytes are reassuring Lipase is normal Urinalysis: No infection [id number] test is negative CT abdomen and pelvis is unremarkable. Differential Diagnosis Appendicitis, cholecystitis, peptic ulcer disease, gastritis, colitis Narrative Course This is a 21-year-old female who presents to the emergency department with right sided abdominal pain and nausea. She is placed in a monitor and an IV was established. Labs are obtained which are reassuring. She is quite tender in the right upper and right lower quadrants. I performed a bedside ultrasound which demonstrated no gallstones. CT abdomen and pelvis was unremarkable. I don't think the patient has a surgical etiology of her symptoms. The patient is seen in the emergency department quite frequently for various complaints, 6-7 times per year. I suspect she has some secondary gain or some personality characteristics that may be contributing to her presentations here. I don't think this reflects an acute emergency. Patient was discharged and referred to his clinic for follow-up. Diagnosis Primary Impression: Abdominal pain Qualified Code: R10.9 - Abdominal pain, unspecified location Referrals: [facility] Patient Instructions: General Instructions Additional Instructions: If you develop severe or worsening abdominal pain, fever>100.4, persistent vomiting or inability to eat or drink return to the emergency department immediately. Follow up with your primary care physician in 1-2 days for a check-up. Med/Other Pt SpecificInfo: No Change to Meds Scripts No Active Prescriptions or Reported Meds Disposition: DISCHARGE HOME Condition: Stable Dot Louis MD Mar 08, 2017 00:49
[2017-03-08] MEDS ORDERED: ONDANSETRON HCL 4 MG/2 ML VIAL IV PUSH ONE (01:00)
[2017-03-08] MEDS ORDERED: ACETAMINOPHEN 650 MG/20.3 ML UDC PO ONE (01:00)
[2017-03-08 01:06] LABS: AUTOMATED NEUTROPHIL # 5.8 TH/MM3 (1.8-7.7); BASOPHIL # 0.1 TH/MM3 (0-0.2); BASOPHIL % 0.7 % (0.0-2.0); EOSINOPHIL # 0.2 TH/MM3 (0-0.4); EOSINOPHIL % 2.2 % (0.0-4.0); HEMATOCRIT 40.3 % (35.0-46.0); HEMO FLAGS DIFF FINAL; LYMPH % 27.5 % (9.0-44.0); LYMPHOCYTE # 2.5 TH/MM3 (1.0-4.8); MEAN CELL VOLUME 84.6 FL (80.0-100.0); MEAN CORPUSCULAR HEMOGLOBIN 28.6 PG (27.0-34.0); MEAN CORPUSCULAR HGB CONC 33.8 % (32.0-36.0); NEUT % 62.6 % (16.0-70.0); PLATELET COUNT 249 TH/MM3 (150-450); RED BLOOD COUNT 4.76 MIL/MM3 (4.00-5.30); RED CELL DISTRIBUTION WIDTH 12.3 % (11.6-17.2); WHITE BLOOD COUNT 9.2 TH/MM3 (4.0-11.0)
[2017-03-08 01:12] LABS: CHLORIDE 107 MEQ/L (98-107); POTASSIUM 3.8 MEQ/L (3.5-5.1); SODIUM (NA) 142 MEQ/L (136-145)
[2017-03-08 01:16] LABS: ANION GAP 7 MEQ/L (5-15); BICARBONATE 27.6 MEQ/L (21.0-32.0); BLOOD UREA NITROGEN 16 MG/DL (7-18)
[2017-03-08 01:19] LABS: ALT (GPT) 25 U/L (10-53); AST (GOT) 18 U/L (15-37); GLOMERULAR FILTRATION RATE 80 ML/MIN (>89)
[2017-03-08 01:20] LABS: BLOOD, URINE NEG (NEG); GLUCOSE,URINE NEG (NEG); KETONE, URINE NEG (NEG); NITRITE,URINE NEG (NEG); PH, URINE 7.5 (5.0-8.5)
[2017-03-08 01:21] LABS: TOTAL BILIRUBIN ADULT 0.2 MG/DL (0.2-1.0)
[2017-03-08 01:22] LABS: ALKALINE PHOSPHATASE 99 U/L (45-117)
[2017-03-08 01:26] LABS: URINE COLOR YELLOW (YELLW/STRAW)
[2017-03-08 01:27] LABS: BACTERIA, URINE RARE /hpf; COMMENT (UR) CULT NOT INDICATED; CULTURE IF INDICATED CULT NOT INDICATED; RBC, URINE 0-2 /hpf (0-3); SQUAMOUS EPITHELIAL CELL URINE 0-5 /hpf (0-5); WBC, URINE 0-2 /hpf (0-5)
[2017-03-08] MEDS ORDERED: IOHEXOL 350 MG/ML 10 ML VIAL (for RAD DIAG) IV ONE (01:45)
[2017-03-08 01:56] VITALS: BP 112/69; PULSE 82; RESP 18; O2SAT 99
--- NOTE | 2017-03-08 01:56 | RADHPO ---
EXAM DATE/TIME: 03/08/2017 01:27 [place] COMPARISON: CT ABDOMEN & PELVIS W CONTRAST, April 20, 2016, 12:57. INDICATIONS : Right sided abdomen pain along with nausea for one day. IV CONTRAST: 67 cc Omnipaque 350 (iohexol) IV ORAL CONTRAST: No oral contrast ingested. RADIATION DOSE: 21.80 CTDIvol (mGy) MEDICAL HISTORY : Asthma SURGICAL HISTORY : None. ENCOUNTER: Initial ACUITY: 1 day PAIN SCALE: 5/10 LOCATION: Right upper quadrant abdomen TECHNIQUE: Volumetric scanning of the abdomen and pelvis was performed. Using automated exposure control and adjustment of the mA and/or kV according to patient size, radiation dose was kept as low as reasonably achievable to obtain optimal diagnostic quality images. FINDINGS: CT Abdomen: The liver, spleen, pancreas, kidneys, adrenals are unremarkable. There is no evidence for any appreciable pathological adenopathy, free fluid, or bowel obstruction. CT pelvis: There is no evidence for mass, abscess formation, or any significant adenopathy within the pelvis. CONCLUSION: Essentially unremarkable study. Jaison Dow MD on March 08, 2017 at 1:52 Board Certified Radiologist. This report was verified electronically.
== END 2017-03-08 02:17 | disposition home or self-care (01) ==
LOC: PHED 00:25
DX: R10.11 Right upper quadrant pain (principal); R50.9 Fever, unspecified
CPT/HCPCS: 74177; 80053; 81001; 83690; 84703; 85025; 96374; 99285; J2405; Q9967

== ENCOUNTER 2017-04-07 20:51 | Emergency (ER) | payer SELFPAY ==
[~2017-04-07] VITALS: Ht 165.1 cm; Wt 115.0 kg
[2017-04-07 20:59] VITALS: BP 110/79; PULSE 76; RESP 20; TEMP 98.4; O2SAT 99
[2017-04-07] MEDS ORDERED: PENI500T PO (21:16)
--- NOTE | 2017-04-07 21:16 | PD ---
HPI Chief Complaint: ENT Complaint Time Seen by Provider: 21:11 Travel History International Travel<30 days: No Contact w/Intl Traveler<30days: No Traveled to known affect area: No History of Present Illness HPI 21-year-old female presents emergency department for evaluation of sore throat times one day. Patient reports upon waking from a nap earlier this evening she noticed her throat was sore when she looked in the near she noticed she had white patches on her tonsils. This was similar to previous strep infections. Patient denies fever or chills. She denies difficulty swallowing. Although she has pain with eating and drinking. No alleviating factors. Symptoms severity [id number]. PFSH Past Medical History ADHD: No Asthma: Yes Depression: Yes Cancer: No Cardiovascular Problems: No Developmental Delay: No Diabetes: No Diminished Hearing: No Psychiatric: Yes (depression) Immunizations Current: Yes Migraines: No Seizures: No Thyroid Disease: No Ulcer: No LMP: 2 WEEKS AGO : 0 Past Surgical History Other Surgery: No Social History Alcohol Use: Yes (RARELY) Tobacco Use: Yes (1/2 PPD) Substance Use: No Allergies-Medications (Allergen,Severity, Reaction): Coded Allergies: Zoloft (Verified Allergy, Severe, THROAT SWELLS, 04/10/17) Reported Meds & Prescriptions Reported Meds & Active Scripts Active Medrol Dosepak (Methylprednisolone) 4 Mg Dspk 4 Mg PO DIRECTED Per Pharmacist direction Penicillin V Potassium 500 Mg Tab 500 Mg PO Q12HR Reported Ibuprofen 400 Mg Tab 400 Mg PO ONCE PRN Review of Systems Except as stated in HPI: all other systems reviewed are Neg General / Constitutional: No: Fever Eyes: No: Visual changes HENT: Positive: Sore Throat, No: Headaches Cardiovascular: No: Chest Pain or Discomfort Respiratory: No: Shortness of Breath Gastrointestinal: No: Abdominal Pain Genitourinary: No: Dysuria Physical Exam Narrative GENERAL: Well-nourished, well-developed patient. SKIN: Focused skin assessment warm/dry. HEAD: Normocephalic. EYES: No scleral icterus. No injection or drainage. THROAT: Bilateral tonsillar swelling with exudate. Uvula is midline. The airway is patent. NECK: Supple, trachea midline. No JVD or lymphadenopathy. CARDIOVASCULAR: Regular rate and rhythm without murmurs, gallops, or rubs. RESPIRATORY: Breath sounds equal bilaterally. No accessory muscle use. GASTROINTESTINAL: Abdomen soft, non-tender, nondistended. MUSCULOSKELETAL: No cyanosis, or edema. BACK: Nontender without obvious deformity. No CVA tenderness. Data Data Last Documented VS Orders Prednisone (Deltasone) (04/07/17 21:30) MDM Medical Decision Making Medical Screen Exam Complete: Yes Emergency Medical Condition: Yes Differential Diagnosis Strep pharyngitis, viral pharyngitis, mononucleosis Narrative Course 21-year-old female with chief complaint of sore throat times one day. Physical exam revealed exudative tonsillitis with moderate tonsillar swelling. Patient is nontoxic-appearing. Patient will be given a dose of steroids here and a prescription for antibiotics. Return precautions discussed. Patient verbalized understanding. Diagnosis Primary Impression: Tonsillitis Referrals: Primary Care Physician Additional Instructions: Take the antibiotics as prescribed. Take [id number] Motrin 922161 milligrams by mouth every 6-8 hours as needed for pain. Stay well hydrated by drinking plenty of fluids. Return to emergency department if he have new or worsening symptoms Scripts Penicillin V Potassium 500 Mg Qdv232 Mg PO Q12HR #20 TAB Prov:Nicolle Mares 04/07/17 Disposition: 01 DISCHARGE HOME Condition: Stable Nicolle Mares Apr 07, 2017 21:16
[2017-04-07] MEDS ORDERED: predniSONE 50 MG TAB PO ONE (21:30)
== END 2017-04-07 21:29 | disposition home or self-care (01) ==
LOC: PHEFT 20:51
DX: J03.90 Acute tonsillitis, unspecified (principal); F17.200 Nicotine dependence, unspecified, uncomplicated
CPT/HCPCS: 99283

== ENCOUNTER 2017-04-09 17:13 | Emergency (ER) | payer SELFPAY ==
[~2017-04-09 17:13] MED LIST changes: -AZIT200S2 PO; -DEXT1SUS PO; -FLUT1SPR5 EACH NARE; +PENI500T PO; -VENTAER INH
[2017-04-09 17:18] VITALS: BP 113/74; PULSE 73; RESP 20; TEMP 98.3
[2017-04-10] MEDS ORDERED: IBUP400T20 PO (22:46)
[2017-04-10] MEDS ORDERED: MEDR4PAK PO (23:13)
== END 2017-04-09 17:45 | disposition left against medical advice (07) ==
LOC: PHED 17:13
DX: R13.10 Dysphagia, unspecified (principal)
CPT/HCPCS: 99281

== ENCOUNTER 2017-04-10 20:01 | Emergency (ER) | payer SELFPAY ==
[2017-04-10 20:03] VITALS: BP 116/62; PULSE 90; RESP 16; TEMP 98.6; O2SAT 100
[2017-04-10] MEDS ORDERED: IBUP400T20 PO (22:46)
[2017-04-10] MEDS ORDERED: MEDR4PAK PO (23:13)
== END 2017-04-10 21:51 | disposition left against medical advice (07) ==
LOC: NED 20:01
DX: J02.9 Acute pharyngitis, unspecified (principal); Z53.21 Procedure and treatment not carried out due to patient leaving prior to being seen by health care provider
CPT/HCPCS: 99281

== ENCOUNTER 2017-04-10 22:26 | Emergency (ER) | payer SELFPAY ==
[~2017-04-10] VITALS: Ht 165.1 cm; Wt 115.0 kg
[2017-04-10 22:39] VITALS: BP 124/73; PULSE 97; RESP 18; TEMP 98.4; O2SAT 99
[2017-04-10] MEDS ORDERED: IBUP400T20 PO (22:46)
[2017-04-10] MEDS ORDERED: MEDR4PAK PO (23:13)
--- NOTE | 2017-04-10 23:13 | PD ---
HPI Chief Complaint: ENT Complaint Time Seen by Provider: 22:52 Travel History International Travel<30 days: No Contact w/Intl Traveler<30days: No Traveled to known affect area: No History of Present Illness HPI So 21 year-old woman who presents to the emergency department complaining of ongoing sore throat and throat swelling. She states symptoms started about 5 days ago. She was seen here was given a prescription for twice daily Pen-Vee K and a dose of steroids. States despite that she's had worsening pain and swelling in her throat and tonsils, wakes up at night with trouble breathing, and also some left ear pain and popping. History Past Medical History Medical History: Denies Significant Hx Tetanus Vaccination: Unknown Influenza Vaccination: No LMP: 03/24/17 : 1 Para: 0 Past Surgical History Surgical History: No Previous Surgery Social History Alcohol Use: Yes (RARELY) Tobacco Use: Yes (1/2 PPD) Allergies-Medications (Allergen,Severity, Reaction): Coded Allergies: Zoloft (Verified Allergy, Severe, THROAT SWELLS, 04/10/17) Reported Meds & Prescriptions Reported Meds & Active Scripts Active Medrol Dosepak (Methylprednisolone) 4 Mg Dspk 4 Mg PO DIRECTED Per Pharmacist direction Penicillin V Potassium 500 Mg Tab 500 Mg PO Q12HR Reported Ibuprofen 400 Mg Tab 400 Mg PO ONCE PRN Review of Systems Except as stated in HPI: all other systems reviewed are Neg Physical Exam Narrative GENERAL: 21 year-old woman, obese, generally well-appearing, no acute distress. SKIN: Focused skin assessment warm/dry. HEAD: Atraumatic. Normocephalic. EYES: Pupils equal and round. No scleral icterus. No injection or drainage. ENT: No nasal bleeding or discharge. Mucous membranes pink and moist. Marked tonsillar enlargement with marked tonsillar exudates. NECK: Trachea midline. Minimal cervical adenopathy. CARDIOVASCULAR: Regular rate and rhythm. No murmur appreciated. RESPIRATORY: No accessory muscle use. Clear to auscultation. Breath sounds equal bilaterally. GASTROINTESTINAL: Abdomen soft, non-tender, nondistended. Hepatic and splenic margins not palpable. MUSCULOSKELETAL: No obvious deformities. Data Data Last Documented VS Vital Signs Date Time Temp Pulse Resp B/P Pulse Ox O2 Delivery O2 Flow Rate FiO2 04/10/17 22:52 16 04/10/17 22:39 98.4 97 124/73 99 Orders Penicillin G Benzathine Inj (Bicillin L- (04/10/17 23:15) Prednisone (Deltasone) (04/10/17 23:15) Group A Rapid Strep Screen (04/10/17 23:03) Strep Culture (Group A) (04/10/17 23:05) Gc Culture Only (04/10/17 23:47) MDM Medical Decision Making Medical Screen Exam Complete: Yes Emergency Medical Condition: Yes Interpretation(s) Rapid strep negative. Differential Diagnosis Strep pharyngitis, viral pharyngitis and tonsillitis, gonococcal pharyngitis, other Narrative Course Medical decision making 21 year-old woman with persistent tonsillitis. She has obvious purulent tonsillitis. This seems like strep. Doesn't seem to responding to the penicillin. Could be under dosed. We'll do Bicillin, check rapid strep, steroids, reassess. Diagnosis Primary Impression: Tonsillitis Additional Instructions: Take prednisone as prescribed. Follow-up with your regular doctor in 1-2 weeks for repeat evaluation. Return to the emergency department for any new or worsening symptoms. Med/Other Pt SpecificInfo: Prescription(s) given Scripts Methylprednisolone Dosepak (Medrol Dosepak)4 Mg Dspk4 Mg PO DIRECTED #1 DSPK Ref 0 Per Pharmacist direction Prov:Phil Garcia MD 04/10/17 Disposition: 01 DISCHARGE HOME Condition: Stable Phil Garcia MD Apr 10, 2017 23:13
[2017-04-10] MEDS ORDERED: predniSONE 20 MG TAB PO ONE (23:15)
[2017-04-10] MEDS ORDERED: PENICILLIN G BENZATHINE 1,200,000 UNITS/2 ML SYRINGE IM ONE (23:15)
[2017-04-11 00:10] VITALS: BP 141/84
== END 2017-04-11 00:12 | disposition home or self-care (01) ==
LOC: PHED 22:26
DX: J03.90 Acute tonsillitis, unspecified (principal); R06.00 Dyspnea, unspecified; H92.02 Otalgia, left ear; F17.200 Nicotine dependence, unspecified, uncomplicated
CPT/HCPCS: 87081; 87880; 96372; 99284; J0561; J7512

== ENCOUNTER 2017-05-10 22:20 | Emergency (ER) | payer SELFPAY ==
[~2017-05-10] VITALS: Ht 165.1 cm; Wt 114.7 kg
[~2017-05-10 22:20] MED LIST changes: +IBUP400T20 PO; +MEDR4PAK PO
[2017-05-10 22:31] VITALS: BP 126/68; PULSE 93; RESP 16; TEMP 99; O2SAT 100
--- NOTE | 2017-05-11 00:26 | PD ---
HPI . Chest pain, back pain, kidney pain Chief Complaint: GI Complaint Time Seen by Provider: 00:08 Travel History International Travel<30 days: No Contact w/Intl Traveler<30days: No Traveled to known affect area: No History of Present Illness HPI Patient is a 22 year old female who presents with a 1 day history of multiple symptoms beginning with substernal chest pain that radiates up her throat described as a pressure, burning sensation. She rates her pain as 8/10. She also complains of feeling feverish, back pain, "kidney pain", nausea, shortness of breath, numbness and tingling in her toes and abnormal vaginal bleeding that began last night. She has noted no exacerbating or relieving factors. She denies chills, vomiting, cough, rhinorrhea, sore throat or urinary symptoms. Her LMP was roughly 1.5 weeks ago, but took Plan B roughly 1 week ago. She has a history of depression treated with Zoloft but is on no medications currently. She has allergies to sertraline. She admits to smoking 0.5 pack per day of tobacco and denies alcohol use or other drug use. PFSH Past Medical History ADHD: No Asthma: Yes ( A CHILD) Bipolar Disorder: Yes Depression: Yes Cancer: No Cardiovascular Problems: No Developmental Delay: No Diabetes: No Diminished Hearing: No Psychiatric: Yes (depression) Immunizations Current: Yes Migraines: No Seizures: No Thyroid Disease: No Ulcer: No Tetanus Vaccination: Unknown ?: Not LMP: "Last week" with bleeding today : 1 Para: 0 Miscarriage: 1 Past Surgical History Surgical History: No Previous Surgery Other Surgery: No Social History Alcohol Use: Yes (RARELY) Tobacco Use: Yes (1/2 PPD) Substance Use: No Allergies-Medications (Allergen,Severity, Reaction): Coded Allergies: sertraline (Unverified Allergy, Severe, THROAT SWELLS, 05/08/17) Reported Meds & Prescriptions Reported Meds & Active Scripts Active Medrol Dosepak (Methylprednisolone) 4 Mg Dspk 4 Mg PO DIRECTED Per Pharmacist direction Penicillin V Potassium 500 Mg Tab 500 Mg PO Q12HR Reported Ibuprofen 400 Mg Tab 400 Mg PO ONCE PRN Review of Systems Except as stated in HPI: all other systems reviewed are Neg General / Constitutional: Positive: Fever, No: Chills HENT: No: Headaches, Congestion Cardiovascular: Positive: Chest Pain or Discomfort, No: Palpitations, Dyspnea on exertion, Edema Respiratory: Positive: Shortness of Breath, No: Cough, Wheezing, Orthopnea, Hemoptysis Gastrointestinal: Positive: Nausea, Abdominal Pain, No: Vomiting, Diarrhea Genitourinary: Positive: Vaginal Bleeding, No: Urgency, Frequency, Dysuria, Nocturia, Hematuria, Pelvic Pain, Dysmenorrhea Musculoskeletal: No: Myalgias, Weakness, Cramping, Edema Skin: No Rash Neurologic: No: Weakness, Dizziness, Syncope Psychiatric: Positive: Depression Physical Exam Narrative GENERAL: Patient was examined sitting on bed, she was in no acute distress. She is alert and oriented x3. SKIN: Warm and dry. HEAD: Atraumatic. Normocephalic. EYES: Pupils equal and round. No conjunctival injections. ENT: No nasal bleeding or discharge. Mucous membranes pink and moist. Tonsils enlarged but no exudates or erythema. NECK: Trachea midline. No lymphadenopathy. CARDIOVASCULAR: Regular rate and rhythm. Heart sounds normal, no murmurs or extra beats. RESPIRATORY: No accessory muscle use. Clear to auscultation bilaterally. GASTROINTESTINAL: Abdomen soft, non-tender, nondistended. No CVA tenderness. MUSCULOSKELETAL: No obvious deformities. No edema. NEUROLOGICAL: Awake and alert. No obvious cranial nerve deficits. Motor grossly within normal limits. Normal speech. PSYCHIATRIC: Somewhat sad mood and affect; insight and judgment normal. Data Data Last Documented VS Vital Signs Date Time Temp Pulse Resp B/P Pulse Ox O2 Delivery O2 Flow Rate FiO2 05/10/17 22:31 99.0 93 16 126/68 100 Room Air Orders Electrocardiogram (05/11/17 ) Ed Urine Pregnancytest Poc (05/11/17 00:17) Al-Mag Hy-Si 40-40-4 Mg/Ml Liq (Mag-Al P (05/11/17 00:30) Lidocaine 2% Viscous (Xylocaine 2% Visco (05/11/17 00:30) Ondansetron Odt (Zofran Odt) (05/11/17 00:30) [facility] Medical Decision Making Medical Screen Exam Complete: Yes Emergency Medical Condition: Yes Interpretation(s) EKG shows a sinus rhythm with some nonspecific STT wave changes but no acute ischemic changes. Differential Diagnosis GERD, , Ectopic , Somatic Symptom Disorder Narrative Course This is a 22 year old female who presents with multiple somatic complaints, most important to her being chest pain which is somewhat non-specific. She has a history of depression. A urine test is ordered as well as EKG and GI cocktail. test is negative. Diagnosis Primary Impression: Chest pain Qualified Code: R07.9 - Chest pain, unspecified type Additional Impression: Vaginal bleeding Additional Instructions: Follow-up with your primary care provider Disposition: 01 DISCHARGE HOME Condition: Stable Yary Hunt MD May 11, 2017 00:26
[2017-05-11] MEDS ORDERED: ONDANSETRON ODT 4 MG TAB PO ONE (00:30)
[2017-05-11] MEDS ORDERED: ALUMINUM/MAGNESIUM/SIMETH 30 ML CUP PO ONE (00:30)
[2017-05-11] MEDS ORDERED: LIDOCAINE VISCOUS 2% SOLN 15 ML UDC PO ONE (00:30)
[2017-05-11 01:01] VITALS: BP 111/76; PULSE 71; RESP 17; TEMP 98.3; O2SAT 97
--- NOTE | 2017-05-11 14:51 | EKG ---
Date Performed: 05/11/2017 Time Performed: 00:35:57 PTAGE: 22 years EKG: Sinus rhythm WITH SINUS ARRHYTHMIA NORMAL ECG PREVIOUS TRACING : 01/20/2012 14.09 Since previous tracing, no significant change noted DOCTOR: Hong Lee Interpretating Date/Time 05/11/2017 14:49:44
== END 2017-05-11 01:13 | disposition home or self-care (01) ==
LOC: PHED 22:20
DX: R07.9 Chest pain, unspecified (principal); N93.9 Abnormal uterine and vaginal bleeding, unspecified; F17.210 Nicotine dependence, cigarettes, uncomplicated
CPT/HCPCS: 84703; 93005; 99283

== ENCOUNTER 2017-05-24 22:43 | Emergency (ER) | payer SELFPAY ==
[~2017-05-24] VITALS: Ht 165.1 cm; Wt 115.1 kg
[2017-05-24 23:42] VITALS: BP 123/73; PULSE 74; RESP 14; TEMP 98.2; O2SAT 100
[2017-05-25 00:30] VITALS: BP 123/73; PULSE 74; RESP 14; TEMP 98.2; O2SAT 100
== END 2017-05-25 01:32 | disposition left against medical advice (07) ==
LOC: PHED 22:43
DX: R21 Rash and other nonspecific skin eruption (principal)
CPT/HCPCS: 99281

== ENCOUNTER 2017-07-21 21:45 | Emergency (ER) | payer SELFPAY ==
[~2017-07-21] VITALS: Ht 165.1 cm; Wt 112.6 kg
[2017-07-21 21:53] VITALS: BP 134/78; PULSE 94; RESP 18; TEMP 98.7; O2SAT 100
[2017-07-21] MEDS ORDERED: CIPR-9 PO (22:42)
[2017-07-21] MEDS ORDERED: DIFL150T PO (22:42)
[2017-07-21] MEDS ORDERED: ULTR50TA5 PO (22:42)
--- NOTE | 2017-07-21 22:45 | PD ---
HPI Chief Complaint: Headache Time Seen by Provider: 22:28 Travel History International Travel<30 days: No Contact w/Intl Traveler<30days: No Traveled to known affect area: No History of Present Illness HPI 2 WEEKS PROGRESSIVE HEAD PAIN, THROBBING, (NO FEVER/NECK PAIN/N/V/D/RUNNY NOSE/ COUGH), 6/10, WORSE IN HOT WEATHER BUT PRESENT ALL THE TIME. ALSO FEELS PAIN BEHIND RIGHT EYE AREA. ALL:ZOLOFT PMHX: ASTHMA PSHX DENIES PFSH Past Medical History ADHD: No Asthma: Yes ( A CHILD) Bipolar Disorder: Yes Depression: Yes Cancer: No Cardiovascular Problems: No Developmental Delay: No Diabetes: No Diminished Hearing: No Psychiatric: Yes (depression) Immunizations Current: Yes Migraines: No Seizures: No Thyroid Disease: No Ulcer: No Tetanus Vaccination: Unknown Influenza Vaccination: No ?: Not LMP: 07/21/17 : 1 Para: 0 Miscarriage: 1 Past Surgical History Surgical History: No Previous Surgery Other Surgery: No Social History Alcohol Use: Yes (RARELY) Tobacco Use: Yes (1/2 PPD) Substance Use: No Allergies-Medications (Allergen,Severity, Reaction): Coded Allergies: sertraline (Unverified Allergy, Severe, THROAT SWELLS, 07/21/17) Reported Meds & Prescriptions Reported Meds & Active Scripts Active No Active Prescriptions or Reported Medications Review of Systems Except as stated in HPI: all other systems reviewed are Neg General / Constitutional: No: Fever Eyes: No: Visual changes HENT: Positive: Headaches Cardiovascular: No: Chest Pain or Discomfort Respiratory: No: Shortness of Breath Gastrointestinal: No: Abdominal Pain Genitourinary: No: Dysuria Musculoskeletal: No: Pain Skin: No Rash Neurologic: No: Weakness Psychiatric: No: Depression Endocrine: No: Polydipsia Hematologic/Lymphatic: No: Easy Bruising Physical Exam Narrative GENERAL: SKIN: Warm and dry. HEAD: Atraumatic. Normocephalic. TT PERCUSSION OVER RIGHT FRONTAL AND MAXILLARY SINUS EYES: Pupils equal and round. No scleral icterus. No injection or drainage. ENT: No nasal bleeding or discharge. Mucous membranes pink and moist. NECK: Trachea midline. No JVD. CARDIOVASCULAR: Regular rate and rhythm. RESPIRATORY: No accessory muscle use. Clear to auscultation. Breath sounds equal bilaterally. GASTROINTESTINAL: Abdomen soft, non-tender, nondistended. Hepatic and splenic margins not palpable. MUSCULOSKELETAL: Extremities without clubbing, cyanosis, or edema. No obvious deformities. NEUROLOGICAL: Awake and alert. No obvious cranial nerve deficits. Motor grossly within normal limits. Five out of 5 muscle strength in the arms and legs. Normal speech. PSYCHIATRIC: Appropriate mood and affect; insight and judgment normal. Data Data Last Documented VS Vital Signs Date Time Temp Pulse Resp B/P (MAP) Pulse Ox O2 Delivery O2 Flow Rate FiO2 07/21/17 21:53 98.7 94 18 134/78 (96) 100 MDM Medical Decision Making Medical Screen Exam Complete: Yes Emergency Medical Condition: Yes Medical Record Reviewed: Yes Differential Diagnosis SINUSITIS V TENSION MESA V MIGRAINE MESA Narrative Course AFTER CLINICAL EVALUATION, EXAM C/W SINUSITIS, BASED ON LACK OF RHINORHEA/COUGH/ ETC BELIEVED TO BE BACTERIAL IN NATURE. WILL D/C WITH PO ABX Diagnosis Primary Impression: Acute sinusitis Qualified Codes: J01.10 - Acute frontal sinusitis, unspecified Scripts Tramadol (Ultram) 50 Mg Tab 50 MG PO Q4H Y for PAIN, #24 TAB 0 Refills Prov: Vladislav Langford MD 07/21/17 Fluconazole (Diflucan) 150 Mg Tab 150 MG PO ONCE for Infection, #1 TAB 0 Refills Prov: Vladislav Langford MD 07/21/17 Ciprofloxacin (Cipro) 500 Mg Tab 500 MG PO BID for Infection for 10 Days, #20 TAB 0 Refills Prov: Vladislav Langford MD 07/21/17 Disposition: 01 DISCHARGE HOME Condition: Stable Vladislav Langford MD Jul 21, 2017 22:45
== END 2017-07-21 22:57 | disposition home or self-care (01) ==
LOC: PHED 21:45
DX: J01.90 Acute sinusitis, unspecified (principal); J45.909 Unspecified asthma, uncomplicated; F31.9 Bipolar disorder, unspecified; F17.200 Nicotine dependence, unspecified, uncomplicated
CPT/HCPCS: 99284

== ENCOUNTER 2017-08-02 05:54 | Emergency (ER) | payer SELFPAY ==
[~2017-08-02] VITALS: Ht 165.1 cm; Wt 112.9 kg
[~2017-08-02 05:54] MED LIST changes: +CIPR-9 PO; +DIFL150T PO; -IBUP400T20 PO; -MEDR4PAK PO; -PENI500T PO; +TRAM50 PO
[2017-08-02 06:00] VITALS: BP 124/77; PULSE 101; RESP 20; TEMP 98.1; O2SAT 100
[2017-08-02 07:20] VITALS: BP 116/65; PULSE 90; RESP 18; O2SAT 99
[2017-08-02] MEDS ORDERED: SODIUM CHLOR 0.9% 1000 ML INJ 1,000 ML IV ONE (07:46)
[2017-08-02] MEDS ORDERED: ACETAMINOPHEN 325 MG TAB PO ONE (08:00)
[2017-08-02] MEDS ORDERED: diphenhydrAMINE HCL 50 MG/ML VIAL IVP ONE (08:00)
[2017-08-02] MEDS ORDERED: PROCHLORPERAZINE INJ 10 MG/2 ML VIAL IVP ONE (08:00)
[2017-08-02] MEDS ORDERED: SODIUM CHLORIDE 0.9% FLUSH 10 ML FLUSH IVF PRN (08:00)
--- NOTE | 2017-08-02 08:23 | RADRPT ---
EXAM DATE/TIME: 08/02/2017 08:03 [facility] COMPARISON: No previous studies available for comparison. INDICATIONS : Cephalgia. Retroorbital pain x 2 weeks. RADIATION DOSE: 63.33 CTDIvol (mGy) MEDICAL HISTORY : None SURGICAL HISTORY : None. ENCOUNTER: Initial ACUITY: 2 weeks PAIN SCALE: 8/10 LOCATION: Bilateral cranial TECHNIQUE: Multiple contiguous axial images were obtained of the head. Using automated exposure control and adj ustment of the mA and/or kV according to patient size, radiation dose was kept as low as reasonably a chievable to obtain optimal diagnostic quality images. DICOM format image data is available electro nically for review and comparison. FINDINGS: CEREBRUM: The ventricles are normal for age. No evidence of midline shift, mass lesion, hemorrhage or acute in farction. No extra-axial fluid collections are seen. POSTERIOR FOSSA: The cerebellum and brainstem are intact. The 4th ventricle is midline. The cerebellopontine angle i s unremarkable. EXTRACRANIAL: The visualized portion of the orbits is intact. SKULL: The calvaria is intact. No evidence of skull fracture. CONCLUSION: Normal examination for a patient of this age. Artem Haddad MD on August 02, 2017 at 8:20 Board Certified Radiologist. This report was verified electronically.
[2017-08-02 08:38] VITALS: BP 119/65; PULSE 90; RESP 18; O2SAT 100
[2017-08-02 09:00] LABS: AUTOMATED NEUTROPHIL # 5.7 TH/MM3 (1.8-7.7); BASOPHIL # 0.2 TH/MM3 (0-0.2); BASOPHIL % 2.4 % (0.0-2.0); EOSINOPHIL # 0.1 TH/MM3 (0-0.4); EOSINOPHIL % 1.6 % (0.0-4.0); HEMATOCRIT 37.4 % (35.0-46.0); HEMO FLAGS DIFF FINAL; LYMPH % 25.3 % (9.0-44.0); LYMPHOCYTE # 2.2 TH/MM3 (1.0-4.8); MEAN CELL VOLUME 84.4 FL (80.0-100.0); MEAN CORPUSCULAR HEMOGLOBIN 29.2 PG (27.0-34.0); MEAN CORPUSCULAR HGB CONC 34.6 % (32.0-36.0); MONO % 7.2 % (0.0-8.0); NEUT % 63.5 % (16.0-70.0); PLATELET COUNT 204 TH/MM3 (150-450); RED BLOOD COUNT 4.43 MIL/MM3 (4.00-5.30); RED CELL DISTRIBUTION WIDTH 11.9 % (11.6-17.2); WHITE BLOOD COUNT 8.8 TH/MM3 (4.0-11.0)
[2017-08-02 09:06] LABS: BICARBONATE 27.1 MEQ/L (21.0-32.0)
[2017-08-02 09:15] LABS: POTASSIUM 4.2 MEQ/L (3.5-5.1)
[2017-08-02] MEDS ORDERED: PROM25TA10 PO (09:16)
--- NOTE | 2017-08-02 09:17 | PD ---
HPI Chief Complaint: Headache Time Seen by Provider: 07:11 Travel History International Travel<30 days: No Contact w/Intl Traveler<30days: No Traveled to known affect area: No History of Present Illness HPI The patient's 22 years old. She reports having a headache for the past month or even longer. Location is in the frontal distribution of the scalp and forehead as well as an abrasion of the left temporal scalp. A few days prior it was retro-orbital on the right side and today it's retro-orbital left side. There has been no fever. There has been no stiffness of the neck. No photo phonophobia has been experienced. Patient states the pain is severe. She has a history of headaches. She reports a history of sinusitis in the past however states that today's symptoms are different. PFSH Past Medical History ADHD: No Asthma: Yes ( A CHILD) Bipolar Disorder: Yes Depression: Yes Cancer: No Cardiovascular Problems: No Developmental Delay: No Diabetes: No Diminished Hearing: No Psychiatric: Yes (depression) Immunizations Current: Yes Migraines: No Seizures: No Thyroid Disease: No Ulcer: No ?: Not LMP: 10 days ago : 1 Para: 0 Miscarriage: 1 Past Surgical History Other Surgery: No Social History Alcohol Use: Yes (RARELY) Tobacco Use: Yes (1/2 PPD) Substance Use: No Allergies-Medications (Allergen,Severity, Reaction): Coded Allergies: sertraline (Unverified Allergy, Severe, THROAT SWELLS, 08/02/17) Reported Meds & Prescriptions Reported Meds & Active Scripts Active Ultram (Tramadol HCl) 50 Mg Tab 50 Mg PO Q4H PRN Review of Systems Except as stated in HPI: all other systems reviewed are Neg General / Constitutional: No: Fever Neurologic: Positive: Headache Physical Exam Narrative GENERAL: 22-year-old female well-nourished well-developed mild distress secondary to pain SKIN: Warm and dry. HEAD: Atraumatic. Normocephalic. EYES: Pupils equal round reactive to light. Extraocular muscles are normal/ normal range of motion. ENT: No nasal bleeding or discharge. Mucous membranes pink and moist. NECK: Trachea midline. No JVD. Neck is supple. Normal range of motion. CARDIOVASCULAR: Regular rate and rhythm. RESPIRATORY: No accessory muscle use. Clear to auscultation. Breath sounds equal bilaterally. GASTROINTESTINAL: Abdomen soft, non-tender, nondistended. Hepatic and splenic margins not palpable. MUSCULOSKELETAL: Extremities without clubbing, cyanosis, or edema. No obvious deformities. NEUROLOGICAL: Awake and alert. No obvious cranial nerve deficits. Motor grossly within normal limits. Five out of 5 muscle strength in the arms and legs. Normal speech. PSYCHIATRIC: Appropriate mood and affect; insight and judgment normal. Data Data Last Documented VS Vital Signs Date Time Temp Pulse Resp B/P (MAP) Pulse Ox O2 Delivery O2 Flow Rate FiO2 08/02/17 08:38 18 100 Room Air 08/02/17 08:38 90 08/02/17 06:00 98.1 Vital signs reviewed Vital Signs Date Time Temp Pulse Resp B/P (MAP) Pulse Ox O2 Delivery O2 Flow Rate FiO2 08/02/17 08:38 18 100 Room Air 08/02/17 08:38 90 18 119/65 (83) 100 Room Air 08/02/17 07:20 90 18 116/65 (82) 99 Room Air 08/02/17 06:00 98.1 101 20 124/77 (93) 100 Orders Orders Complete Blood Count With Diff (08/02/17 07:46) Basic Metabolic Panel (Bmp) (08/02/17 07:46) Ct Brain W/O Iv Contrast(Rout) (08/02/17 07:46) Ecg Monitoring (08/02/17 07:46) Iv Access Insert/Monitor (08/02/17 07:46) Oximetry (08/02/17 07:46) Sodium Chloride 0.9% Flush (Ns Flush) (08/02/17 08:00) Acetaminophen (Tylenol) (08/02/17 08:00) Prochlorperazine Inj (Compazine Inj) (08/02/17 08:00) Diphenhydramine Inj (Benadryl Inj) (08/02/17 08:00) Sodium Chlor 0.9% 1000 Ml Inj (Ns 1000 M (08/02/17 07:46) Labs Laboratory Tests Test 08/02/17 08:45 08/02/17 08:50 White Blood Count 8.8 TH/MM3 Red Blood Count 4.43 MIL/MM3 Hemoglobin 12.9 GM/DL Hematocrit 37.4 % Mean Corpuscular Volume 84.4 FL Mean Corpuscular Hemoglobin 29.2 PG Mean Corpuscular Hemoglobin Concent 34.6 % Red Cell Distribution Width 11.9 % Platelet Count 204 TH/MM3 Mean Platelet Volume 9.8 FL Neutrophils (%) (Auto) 63.5 % Lymphocytes (%) (Auto) 25.3 % Monocytes (%) (Auto) 7.2 % Eosinophils (%) (Auto) 1.6 % Basophils (%) (Auto) 2.4 % Neutrophils # (Auto) 5.7 TH/MM3 Lymphocytes # (Auto) 2.2 TH/MM3 Monocytes # (Auto) 0.6 TH/MM3 Eosinophils # (Auto) 0.1 TH/MM3 Basophils # (Auto) 0.2 TH/MM3 CBC Comment DIFF FINAL Differential Comment MDM Medical Decision Making Medical Screen Exam Complete: Yes Emergency Medical Condition: Yes Medical Record Reviewed: Yes Differential Diagnosis migraine, aneurysm, subarachnoid hemorrhage, sinusitis, tumor, meningitis tension headache Narrative Course CBC & BMP Diagram 08/02/17 08:45 08/02/17 08:[address] 08/02/17 0746 Signed Impressions: Service Date/Time: July 08:03 - CONCLUSION: Normal examination for a patient of this age. Artem Haddad MD Calcium Level 8.1 L Patient received Compazine Benadryl and IV fluids. At 910 and she reported feeling much better/resolution of pain and was observed sleeping. Given duration of symptoms and unremarkable workup patient's considered safe for discharge home with a prescription for Phenergan. Follow-up with neurology. Return precautions discussed. Diagnosis Primary Impression: Headache Qualified Codes: R51 - Headache Referrals: Estrada Robin MD call for appointment Additional Instructions: You have a choice when it comes to health care, and we are glad that you chose [facility] Hopefully, we have met your expectations on today's visit. You are welcome to return to [facility] at any time, as we are committed to meeting the health care needs of our community. Med/Other Pt SpecificInfo: Prescription(s) given Scripts Promethazine (Phenergan) 25 Mg Tablet 25 MG PO Q6H Y for NAUSEA OR VOMITING, #10 TAB 0 Refills Prov: Edgar Couch MD 08/02/17 Disposition: DISCHARGE HOME Condition: Stable Edgar Couch C. MD Aug 02, 2017 09:17
== END 2017-08-02 09:28 | disposition home or self-care (01) ==
LOC: PHED 05:54
DX: R51 Headache (principal)
CPT/HCPCS: 70450; 80048; 85025; 96361; 96374; 96375; 99285; J0780; J1200; J7030

== ENCOUNTER 2017-10-07 03:56 | Emergency (ER) | payer SELFPAY ==
[~2017-10-07] VITALS: Ht 165.1 cm; Wt 109.4 kg
[~2017-10-07 03:56] MED LIST changes: -CIPR-9 PO; -DIFL150T PO; +PROM25TA10 PO
[2017-10-07 04:01] VITALS: BP 130/79; PULSE 106; RESP 20; TEMP 98.2; O2SAT 100
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
--- NOTE | 2017-10-07 04:40 | RADRPT ---
EXAM DATE/TIME: 10/07/2017 04:18 [facility] COMPARISON: No previous studies available for comparison. INDICATIONS : Right lateral ankle pain. MEDICAL HISTORY : None. SURGICAL HISTORY : None. ENCOUNTER: Initial ACUITY: 1 day PAIN SCORE: 8/10 LOCATION: Right lateral ankle FINDINGS: Three view exam was performed of the right ankle. The bony structures are in normal alignment. No e vidence of fracture, dislocation. There is some soft tissue swelling the ankle.. The ankle mortise i s intact. No radiopaque foreign bodies are seen. Bony mineralization is normal. CONCLUSION: Soft tissue swelling. No acute fracture or joint dislocation. Artem Haddad MD on October 07, 2017 at 4:37 Board Certified Radiologist. This report was verified electronically.
[2017-10-07] MEDS ORDERED: IBUP-232 PO (04:47)
== END 2017-10-07 05:05 | disposition home or self-care (01) ==
LOC: PHED 03:56
DX: S93.401A Sprain of unspecified ligament of right ankle, initial encounter (principal); M25.571 Pain in right ankle and joints of right foot; F31.9 Bipolar disorder, unspecified; F17.210 Nicotine dependence, cigarettes, uncomplicated; X58.XXXA Exposure to other specified factors, initial encounter
CPT/HCPCS: 73610; 99283; E0113; L1906

== ENCOUNTER 2017-10-14 20:18 | Emergency (ER) | payer SELFPAY ==
[~2017-10-14] VITALS: Ht 165.1 cm; Wt 110.0 kg
[~2017-10-14 20:18] MED LIST changes: +IBUP-232 PO; -PROM25TA10 PO; -TRAM50 PO
[2017-10-14 20:23] VITALS: BP 112/61; PULSE 88; RESP 16; TEMP 98.2; O2SAT 99
[2017-10-14] MEDS ORDERED: CORTI10A RIGHT EAR (20:47)
--- NOTE | 2017-10-14 20:47 | PD ---
HPI Chief Complaint: ENT Complaint Time Seen by Provider: 20:28 Travel History International Travel<30 days: No Contact w/Intl Traveler<30days: No Traveled to known affect area: No History of Present Illness HPI Patient is a 22-year-old female with a history of recurrent otitis presents emergency Department with right ear pain. States the past 2 days, gradually worsening, no SIRS or water exposure, minimal congestion no cough. No fevers. PFSH Past Medical History ADHD: No Asthma: Yes ( A CHILD) Bipolar Disorder: Yes Depression: Yes Cancer: Yes (ovarian "told by [address]'saima") Cardiovascular Problems: No Developmental Delay: No Diabetes: No Diminished Hearing: No Psychiatric: Yes (depression) Immunizations Current: Yes Migraines: No Seizures: No Thyroid Disease: No Ulcer: No Tetanus Vaccination: Unknown Influenza Vaccination: No ?: Not LMP: 2-3 wks ago : 1 Para: 0 Miscarriage: 1 Past Surgical History Surgical History: No Previous Surgery Other Surgery: No Social History Alcohol Use: Yes (couple x's a wk) Tobacco Use: Yes (1/2 PPD) Substance Use: No Allergies-Medications (Allergen,Severity, Reaction): Coded Allergies: sertraline (Unverified Allergy, Severe, THROAT SWELLS, 10/07/17) Reported Meds & Prescriptions Reported Meds & Active Scripts Active Rfaynlxc-Pvgpiiklq-HK Otic Drops (Neomycin/Polymyxin/Hydrocortisone) 1 % Soln 4 Drop RIGHT EAR QID Review of Systems Except as stated in HPI: all other systems reviewed are Neg Physical Exam Narrative GENERAL: Well-nourished, well-developed patient. SKIN: Focused skin assessment warm/dry. HEAD: Normocephalic. EYES: No scleral icterus. No injection or drainage. ENT: Left TM and left canal normal, right TM normal but there is some erythema and some stricture of the distal canal, some minimal tenderness of the tragus on the right, tonsils 2+, not erythematous, no discharge. NECK: Supple, trachea midline. No JVD or lymphadenopathy. CARDIOVASCULAR: Regular rate and rhythm without murmurs, gallops, or rubs. RESPIRATORY: Breath sounds equal bilaterally. No accessory muscle use. GASTROINTESTINAL: Abdomen soft, non-tender, nondistended. MUSCULOSKELETAL: No cyanosis, or edema. BACK: Nontender without obvious deformity. No CVA tenderness. Data Data Last Documented VS Vital Signs Date Time Temp Pulse Resp B/P (MAP) Pulse Ox O2 Delivery O2 Flow Rate FiO2 10/14/17 20:23 98.2 88 16 112/61 (78) 99 Orders Orders Ed Discharge Order (10/14/17 20:47) MDM Medical Decision Making Medical Screen Exam Complete: Yes Emergency Medical Condition: Yes Differential Diagnosis Otitis media, otitis externa, URI. Narrative Course Patient roomed in emergency department, signs symptoms consistent with acute otitis externa hernia no evidence for otitis media. Discussed symptomatic management, return to ED criteria and follow-up with an ear nose and throat doctor. She is stable for discharge. Patient also states she wanted to follow- up with an ear nose and throat doctor for tonsillectomy and she has had recurrent tonsillitis. Diagnosis Primary Impression: Otitis externa Referrals: Nirav Snow MD Med/Other Pt SpecificInfo: Prescription(s) given Scripts Ybbbfoqk-Pqohzkxqr-PU Otic Drops (Gujntzlc-Igxezlnqr-HU Otic Drops) 1 % Soln 4 DROP RIGHT EAR QID for Infection, #1 BOTTLE 0 Refills Prov: Hema Gomez MD 10/14/17 Disposition: 01 DISCHARGE HOME Condition: Stable Hema Gomez MD Oct 14, 2017 20:47
== END 2017-10-14 20:59 | disposition home or self-care (01) ==
LOC: PHEFT 20:18
DX: H60.91 Unspecified otitis externa, right ear (principal); F17.210 Nicotine dependence, cigarettes, uncomplicated
CPT/HCPCS: 99283

== ENCOUNTER 2017-12-22 02:58 | Emergency (ER) | payer SELFPAY ==
[~2017-12-22] VITALS: Ht 165.1 cm; Wt 110.5 kg
[~2017-12-22 02:58] MED LIST changes: +CORTI10A RIGHT EAR; -IBUP-232 PO
[2017-12-22 03:00] VITALS: BP 145/83; PULSE 99; RESP 14; TEMP 98.8; O2SAT 100
[2017-12-22] MEDS: IBUPROFEN 600 MG TAB PO ONE (03:30)
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
[2017-12-22] MEDS ORDERED: IBUPROFEN SUSP 100 MG/5 ML UDC PO ONE (03:45)
[2017-12-22 04:29] VITALS: BP 145/84; TEMP 98.3
== END 2017-12-22 04:30 | disposition home or self-care (01) ==
LOC: PHED 02:58
DX: H93.19 Tinnitus, unspecified ear (principal); H91.90 Unspecified hearing loss, unspecified ear; F17.200 Nicotine dependence, unspecified, uncomplicated; Z88.8 Allergy status to other drugs, medicaments and biological substances
CPT/HCPCS: 99282

== ENCOUNTER 2018-03-10 20:39 | Emergency (ER) | payer OTHER ==
[2018-03-10 20:44] VITALS: BP 117/74; PULSE 82; RESP 20; TEMP 98.6; O2SAT 99
[2018-03-10] MEDS ORDERED: KETOROLAC TROMETHAMINE 60 MG/2 ML (IM) VIAL IM ONE (21:15)
[2018-03-10] MEDS ORDERED: NAPR500T2 PO (21:17)
--- NOTE | 2018-03-10 21:17 | PD ---
HPI Chief Complaint: Back/ Neck Pain or Injury Time Seen by Provider: 21:01 Travel History International Travel<30 days: No Contact w/Intl Traveler<30days: No Traveled to known affect area: No History of Present Illness HPI Is a 22-year-old woman who presents emerged from quitting of back pain after she was doing some lifting at work. States she was lifting a box she felt a pop in her back and felt pain radiating to her back and both legs. She complains of some subjective sensory changes in the left leg. No other complaints. Denies a history of back problems. Does have a history of kidney problems and feels like maybe it is her kidneys. History Past Medical History Medical History: Denies Significant Hx LMP: YESTEDAY : 1 Para: 0 Social History Alcohol Use: Yes (couple x's a wk) Tobacco Use: Yes (1/2 PPD) Allergies-Medications (Allergen,Severity, Reaction): Coded Allergies: sertraline (Unverified Allergy, Severe, THROAT SWELLS, 03/10/18) Reported Meds & Prescriptions Reported Meds & Active Scripts Active Naproxen 500 Mg Tab 500 Mg PO BID 10 Days Review of Systems Except as stated in HPI: all other systems reviewed are Neg Physical Exam Narrative GENERAL: Well-developed, well-nourished, no acute distress. SKIN: Warm and dry. CARDIOVASCULAR: Warm and well perfused. RESPIRATORY: Normal rate and effort. MUSCULOSKELETAL: Normal appearance of back and bilateral lower extremities. No ecchymosis, swelling, bruising. No rashes. Normal muscle bulk and tone. NEUROLOGICAL: Strength full 5/5 and equal in bilateral lower extremities in proximal and distal muscle groups. 5/5 in large toe flexion and extension. Sensation is intact to light touch throughout, patient states subjective sensory changes she describes as feeling like she is being tickled on the left leg. Normal gait. Able to heel walk and toe walk. PSYCHIATRIC: Appropriate mood and affect; insight and judgment normal. Data Data Last Documented VS Vital Signs Date Time Temp Pulse Resp B/P (MAP) Pulse Ox O2 Delivery O2 Flow Rate FiO2 03/10/18 20:44 98.6 82 20 117/74 (88) 99 Orders Orders Ketorolac Inj (Toradol Inj) (03/10/18 21:15) Ed Discharge Order (03/10/18 21:17) [facility] Medical Decision Making Medical Screen Exam Complete: Yes Emergency Medical Condition: Yes Differential Diagnosis Back strain or sprain, herniated disc, occult trauma, other Narrative Course Medical decision making INITIAL: 22-year-old woman presents emerged from quitting of back pain started while she was lifting. She looks well. Pretty benign exam. She states some subjective sensory changes in the left leg. Recommend NSAIDs, outpatient follow -up. Diagnosis Primary Impression: Back strain Additional Instructions: Take naproxen as prescribed. Follow-up with your primary doctor or to the doctor referred to by your Worker' s Compensation. Return to the emergency department for any worsening numbness, tingling, weakness, or any other new or worsening symptoms. Med/Other Pt SpecificInfo: Prescription(s) given Scripts Naproxen (Naproxen) 500 Mg Tab 500 MG PO BID for 10 Days, #20 TAB 0 Refills Prov: Phil Garcia MD 03/10/18 Disposition: 01 DISCHARGE HOME Condition: Stable Phil Garcia MD Mar 10, 2018 21:17
== END 2018-03-10 21:56 | disposition home or self-care (01) ==
LOC: PHEFT 20:39
DX: S39.012A Strain of muscle, fascia and tendon of lower back, initial encounter (principal); X50.0XXA Overexertion from strenuous movement or load, initial encounter; Y99.0 Civilian activity done for income or pay; Z72.0 Tobacco use
CPT/HCPCS: 96372